=== PATIENT | female | born 1955 | race Caucasian/White ===

== ENCOUNTER 2019-07-16 09:35 | Outpatient (CLI) | payer MEDICARE, MEDICAID, SELFPAY ==
[2019-07-16 10:23] LABS: Basophils # 0.1 10^3/uL (0.0-0.1); Eosinophils # 0.1 10^3/uL (0.0-0.8); Eosinophils % 1.6 %; Hematocrit 35.9 % (37.0-47.0); Hemoglobin 11.2 g/dL (11.5-15.3); Lymphocytes # 2.2 10^3/uL (0.8-4.8); Mean Corpuscular HGB Conc 31.2 g/dL (30.0-36.0); Mean Corpuscular Hemoglobin 27.2 pg (28.0-34.0); Mean Corpuscular Volume 87.1 fL (81-99); Mean Platelet Volume 9.8 fL (7.4-10.4); Monocytes # 0.4 10^3/uL (0.2-0.9); Monocytes % 6.7 %; Neutrophils # 3.3 10^3/uL (1.8-7.7); Neutrophils % 54.4 %; Nucleated Red Blood Cells % 0 %; Platelet Count 303 10^3/cmm (130-400); Red Blood Count 4.12 10^6/uL (4.1-5.3); White Blood Count 6.1 10^3/uL (4.0-10.0)
[2019-07-16 10:40] LABS: Alanine Aminotransferase 6 U/L (0-33); Albumin Level 3.9 g/dL (3.5-5.2); Alkaline Phosphatase 83 IU/L (35-105); Anion Gap 16.3 (5-19); Aspartate Amino Transferase 13 U/L (0-32); Blood Urea Nitrogen 18 mg/dL (8-23); Carbon Dioxide 23 mmol/L (22-29); Chloride 103 mmol/L (98-107); Globulin 3.8 g/dL (1.3-4.6); Glucose 98 mg/dL (65-115); Potassium 4.3 mmol/L (3.5-5.1); Sodium 138 mmol/L (136-145); Total Bilirubin 0.4 mg/dL (0.15-1.2); Total Protein 7.7 g/dL (6.6-8.7)
[2019-07-16 10:57] LABS: Immunoglobulin IGA 492 mg/dL (70-400); Immunoglobulin IGG 1191 mg/dL (700-1600); Immunoglobulin IGM 84 mg/dL (40-230)
[2019-07-17 09:08] LABS: PROTEIN, TOTAL 6.7 g/dL (6.1-8.1)
[2019-07-17 14:55] LABS: ALBUMIN 3.5 g/dL (3.8-4.8); ALPHA 1 GLOBULIN 0.3 g/dL (0.2-0.3); ALPHA 2 GLOBULIN 0.8 g/dL (0.5-0.9); BETA 1 GLOBULIN 0.5 g/dL (0.4-0.6); BETA 2 GLOBULIN 0.5 g/dL (0.2-0.5); GAMMA GLOBULIN 1.1 g/dL (0.8-1.7); KAPPA/LAMBDA LIGHT CHAINS FREE 3.14 (0.26-1.65); LAMBDA LIGHT CHAIN, FREE, SERU 33.1 mg/L (5.7-26.3)
== END 2019-07-16 09:36 | disposition home or self-care (01) ==
LOC: ONCMED 09:40
PROVIDERS: PCP Preventive Medicine Occupational Medicine; Visit Provider Internal Medicine Medical Oncology
DX: C90.01 Multiple myeloma in remission (principal)
CPT/HCPCS: 80053; 82784; 83883; 84155; 84165; 85025

== ENCOUNTER 2019-08-28 08:41 | Outpatient (CLI) | payer MEDICARE, MEDICAID, SELFPAY ==
[2019-08-28 09:37] LABS: Hematocrit 37.6 % (37.0-47.0); Hemoglobin 11.4 g/dL (11.5-15.3); Mean Corpuscular HGB Conc 30.3 g/dL (30.0-36.0); Mean Corpuscular Hemoglobin 27.3 pg (28.0-34.0); Mean Corpuscular Volume 90.2 fL (81-99); Mean Platelet Volume 9.6 fL (7.4-10.4); Platelet Count 271 10^3/cmm (130-400); Red Blood Count 4.17 10^6/uL (4.1-5.3); Red Cell Distribution Width 14.4 % (12.1-15.1); White Blood Count 6.1 10^3/uL (4.0-10.0)
[2019-08-28 10:04] LABS: Anion Gap 16.1 (5-19); Blood Urea Nitrogen 19 mg/dL (8-23); Calcium 9.5 mg/dL (8.5-10.5); Carbon Dioxide 23 mmol/L (22-29); Chloride 106 mmol/L (98-107); Glomerular Filtration Rate 49.7 mL/min (90-130); Glucose 103 mg/dL (65-115); Phosphorus 1.9 mg/dL (2.5-4.5); Potassium 4.1 mmol/L (3.5-5.1); Sodium 141 mmol/L (136-145)
[2019-08-28 10:13] LABS: Creatinine Urine, Random 119 mg/dL (28-217)
[2019-08-28 10:24] LABS: 25 Hydroxy Vitamin D 37 ng/mL (30-100); Calcium 9.3 mg/dL (8.5-10.5); Parathyroid Hormone 75.9 pg/mL (15-65)
[2019-08-28 10:28] LABS: Microalbum Creatinine Ratio Ur 8 mg/dL (0-20); Microalbumin Random Urine < 1 ug/dL (0-20)
[2019-08-28 10:45] LABS: Absolute Eosinophils 0.1 10^3/cmm (0.0-0.7); Absolute Segmented Neutrophil 3.3 10/cmm (1.6-7.1); Band Neutrophils Absolute 0.1 10^3/cmm (0.0-1.2); Basophils Absolute 0.1 10^3/cmm (0.0-0.2); Eosinophils 2 %; Lymphocytes 29 %; Monocytes Absolute 0.7 10^3/cmm (0.1-0.6); Platelet Estimate Normal (Normal); Segmented Neutrophils 55 %; Total Cells Counted 100 (0-100)
== END 2019-08-28 08:42 | disposition home or self-care (01) ==
LOC: LAB 08:45
PROVIDERS: Visit Provider Nurse Practitioner Family
DX: N18.3 Chronic kidney disease, stage 3 (moderate) (principal)
CPT/HCPCS: 80069; 82044; 82306; 82310; 83970; 85007; 85027

== ENCOUNTER 2019-10-10 09:44 | Outpatient (CLI) | payer MEDICARE, MEDICAID, SELFPAY ==
[2019-10-10 10:27] LABS: Basophils # 0.1 10^3/uL (0.0-0.1); Basophils % 0.8 %; Eosinophils # 0.2 10^3/uL (0.0-0.8); Eosinophils % 2.6 %; Hematocrit 37.1 % (37.0-47.0); Hemoglobin 11.4 g/dL (11.5-15.3); Lymphocytes # 2.4 10^3/uL (0.8-4.8); Lymphocytes % 31.8 %; Mean Corpuscular HGB Conc 30.7 g/dL (30.0-36.0); Mean Corpuscular Hemoglobin 27.9 pg (28.0-34.0); Mean Corpuscular Volume 90.7 fL (81-99); Mean Platelet Volume 9.3 fL (7.4-10.4); Monocytes # 0.5 10^3/uL (0.2-0.9); Monocytes % 7.1 %; Neutrophils # 4.3 10^3/uL (1.8-7.7); Neutrophils % 57.4 %; Nucleated Red Blood Cells % 0 %; Platelet Count 310 10^3/cmm (130-400); Red Blood Count 4.09 10^6/uL (4.1-5.3); Red Cell Distribution Width 14.6 % (12.1-15.1); White Blood Count 7.5 10^3/uL (4.0-10.0)
[2019-10-10 10:48] LABS: Alanine Aminotransferase 16 U/L (0-33); Alkaline Phosphatase 83 IU/L (35-105); Anion Gap 15.2 (5-19); Aspartate Amino Transferase 17 U/L (0-32); Blood Urea Nitrogen 22 mg/dL (8-23); Calcium 9.5 mg/dL (8.5-10.5); Carbon Dioxide 24 mmol/L (22-29); Chloride 105 mmol/L (98-107); Globulin 3.4 g/dL (1.3-4.6); Glomerular Filtration Rate 44.9 mL/min (90-130); Glucose 95 mg/dL (65-115); Immunoglobulin IGA 460 mg/dL (70-400); Immunoglobulin IGG 1119 mg/dL (700-1600); Immunoglobulin IGM 84 mg/dL (40-230); Osmolality Calculated 286 mOsm/kg (285-295); Potassium 4.2 mmol/L (3.5-5.1); Sodium 140 mmol/L (136-145); Total Bilirubin 0.3 mg/dL (0.15-1.2); Total Protein 7.4 g/dL (6.6-8.7)
[2019-10-11 10:12] LABS: PROTEIN, TOTAL 6.9 g/dL (6.1-8.1)
[2019-10-11 13:37] LABS: ALBUMIN 3.5 g/dL (3.8-4.8); ALPHA 1 GLOBULIN 0.3 g/dL (0.2-0.3); BETA 1 GLOBULIN 0.4 g/dL (0.4-0.6); BETA 2 GLOBULIN 0.6 g/dL (0.2-0.5); GAMMA GLOBULIN 1.1 g/dL (0.8-1.7); KAPPA LIGHT CHAIN, FREE, SERUM 80.8 mg/L (3.3-19.4); KAPPA/LAMBDA LIGHT CHAINS FREE 2.34 (0.26-1.65); LAMBDA LIGHT CHAIN, FREE, SERU 34.5 mg/L (5.7-26.3)
[2019-10-11 16:16] LABS: CREATININE, 24 HOUR URINE 0.92 g/24 h (0.50-2.15); PROTEIN, TOTAL, 24 HR UR 224 mg/24 h (<150); Protein/Creatinine Ratio 0.242 (< OR = 0.114); Protein/Creatinine Ratio 242 mg/g creat (< OR = 114)
[2019-10-12 12:21] LABS: ALPHA-1-GLOBULINS 0 %; ALPHA-2-GLOBULINS 0 %; BETA GLOBULINS 0 %; GAMMA GLOBULINS 0 %
[2019-11-28 11:23] LABS: COLLECTION DURATION 24; URINE VOLUME 2800
== END 2019-10-10 09:45 | disposition home or self-care (01) ==
LOC: ONCMED 09:49
PROVIDERS: PCP Internal Medicine Nephrology; Visit Provider Internal Medicine Medical Oncology
DX: C90.01 Multiple myeloma in remission (principal); D64.9 Anemia, unspecified
CPT/HCPCS: 36415; 80053; 82040; 82784; 83883; 84155; 84165; 85025

== ENCOUNTER 2019-10-17 08:38 | Outpatient (CLI) | payer MEDICARE, MEDICAID, SELFPAY ==
--- NOTE | 2019-10-21 08:19 | ONC FU_ITS ---
Dr. Sheth Patient Follow-Up Note Patient: Aniyah Altman Unit #: [id number]: 1955 Dicatated By: Darius Sheth M.D.Date of Visit:Oct 17, 2019 Onc Med Follow-up/Prog Note Chief Complaint: Myeloma. History of Present Illness: This is a 64 year-old woman with kappa light chain myeloma. She had renal failure at initial presentation in August of 2002. At that time she also had severe venous stasis of the lower extremities with multiple associated skin ulcerations. She had a very good clinical response to initial treatment with 6 cycles of Doxil/vincristine/dexamethasone, completed in December 2002. She then underwent high-dose melphalan/stem cell transplant at [facility] in June of 2003. She has remained on observation since then, thus far with no recurrence/progression of her myeloma. 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 She had previously been treated with IV Zometa, but just with a brief course limited to 4 doses between August and November of 2003. Her other medical illnesses include hypertension and stage III chronic kidney disease. She is a nonsmoker. In the latter part of 2010 she had recurrence of venous stasis symptoms in the lower extremities, which included both swelling and ulcerations. She was seen in the wound care clinic for a persistent ulceration on the lower left leg. She apparently was found to have a venous abnormality in the left calf area, for which she did have some type of vascular procedure. She then continued on observation/expectant management for the myeloma. She is seen for a scheduled visit. She says she has been feeling great. She has good energy and she has normal activity. ECOG score is 0. Her appetite is good. She has no fever or night sweats. She has a little bit of sinus drainage. She does not complain of shortness of breath, cough, or chest pain. She has no GI or complaints. She has a little arthritis in her hands. She has no significant joint or bone pain. She has no focal neurologic symptoms. Medications: Calcium 600/Vitamin D 1 (600-400 mg - Units) Tablet Oral daily, Ergocalciferol 1 Capsule (of 1000 Units) Oral daily, Famotidine 1 Tablet (of 20 mg) Oral daily, Iron 1 (66 mg) Tablet Oral daily, Lisinopril 1 (40 mg) Tablet Oral daily, Metoprolol Tartrate 1 (25 mg) Tablet Oral b.i.d., Multi-Vitamin 1 Tablet Oral daily Allergies: No Known Allergies. Review of Systems: Constitutional - She is feeling good and has good energy. She has normal activity. Her appetite is good and weight is up a few pounds. No fever, night sweats, or hot flashes. ECOG score is 0, ENMT - She has some mild sinus congestion/drainage. No mouth sores. No sore throat or difficulty swallowing, Hematologic/Lymphatic - No abnormal bruising or bleeding, Respiratory - No shortness of breath. No cough. No pleuritic pain or hemoptysis, Cardiovascular - No angina pain. No palpitations, Gastrointestinal - No nausea or vomiting. No heartburn or acid reflux. No diarrhea or constipation. No blood in the stool or black stools, Genitourinary (F) - No dysuria or hematuria. No urinary frequency. No urgency or incontinence, Musculoskeletal - She has some arthirtis pain in her hands, Integumentary - No skin complications, Neurologic - No headache or dizziness. No numbness or tingling. No other focal neurologic symptoms, Psychiatric - No anxiety or depression. No insomnia. Vital Signs: Performed on Oct 17, 2019 09:07 Height - 61.00 in Weight - 162.0 lbs (HIGH) BSA - 1.73 sq.m BMI - 30.61 (HIGH) Temperature - 97.4 F (LOW) Pulse - 69 /min Respiration - 24 /min BP - 134/80 mm(hg) O2 Sat - 100 % Pain - 0 Physical Examination: Constitutional - She looks good generally, Eyes - Sclerae nonicteric. Conjunctivae clear, ENMT - No lesions noted in the oral cavity, Hematologic/Lymphatic - No cervical, clavicular, or axillary adenopathy, Respiratory - Lungs are clear with good air movement bilaterally, Cardiovascular - Heart rhythm is regular. There is no murmur, gallop, or rub noted, Abdomen - Soft. Liver and spleen are not enlarged. There is no abdominal mass or ascites noted and there is no inguinal adenopathy, Extremities - There are venous stasis changes bilaterally. There is no edema, Integumentary - There are no skin ulcerations, Neurologic - No focal neurologic deficits noted. Lab/Imaging: Test performed on October 10, 2019 10:05 Sodium 140 mmol/L Potassium 4.2 mmol/L Chloride 105 mmol/L CO2 24 mmol/L Anion Gap 15.2 BUN 22 mg/dL Creatinine 1.2 mg/dL Cr Clearance (Est) 52.1100 mL/min eGFR 44.9 mL/min Glucose 95 mg/dL Calcium 9.5 mg/dL Protein, Total 7.4 g/dL Albumin 4.0 g/dL Globulin 3.4 g/dL Bilirubin, Total 0.3 mg/dL ALT (SGPT) 16 U/L AST (SGOT) 17 U/L Alkaline Phosphatase 83 IU/L WBC 7.5 10 3/uL RBC 4.09 10 6/uL HGB 11.4 g/dL HCT 37.1 % MCV 90.7 fL MCH 27.9 pg MCHC 30.7 g/dL RDW 14.6 % Platelet Count 310 10 3/cmm MPV 9.3 fL Neutrophils 4.3 10 3/uL Lymphocytes 2.4 10 3/uL Monocytes 0.5 10 3/uL Eosinophils 0.2 10 3/uL Basophils 0.1 10 3/uL Neutrophil % 57.4 % Lymphocyte % 31.8 % Monocyte % 7.1 % Eosinophil % 2.6 % Basophils % 0.8 % IgG 1119 mg/dL IgA 460 mg/dL IgM 84 mg/dL Impression: 1. Patient has kappa light chain myeloma, initially presenting with renal failure in August 2002. 2. She had a good response to initial treatment with 6 cycles of Doxil/vincristine/dexamethasone, completed in December 2002. 3. She underwent high-dose melphalan/stem cell transplant in June 2003. She has since then remained on observation. 4. Her clinical course was complicated by osteonecrosis of the mandible, though she had received only a very limited course of treatment with Zometa. 5. She also has had problems intermittently related to chronic venous stasis of the lower extremities. Her other medical illnesses include: 6. Hypertension. 7. Chronic kidney disease. During followup she has continued to have somewhat borderline renal function, and she remains slightly anemic. Overall, she has been doing well clinically, thus far with no evidence of recurrence/progression of the light chain disease. Plan: She remains on observation/expectant management. She will be scheduled for a follow-up visit in 6 months. Signed By: Darius Sheth M.D. <<Signature on File>>
== END 2019-10-17 08:39 | disposition home or self-care (01) ==
LOC: ONCMED 08:42
PROVIDERS: Visit Provider Internal Medicine Medical Oncology
DX: C90.01 Multiple myeloma in remission (principal); N18.9 Chronic kidney disease, unspecified; I10 Essential (primary) hypertension; M87.88 Other osteonecrosis, other site; I83.009 Varicose veins of unspecified lower extremity with ulcer of unspecified site; L97.919 Non-pressure chronic ulcer of unspecified part of right lower leg with unspecified severity; L97.929 Non-pressure chronic ulcer of unspecified part of left lower leg with unspecified severity; Z92.21 Personal history of antineoplastic chemotherapy
CPT/HCPCS: G0463

== ENCOUNTER 2020-04-17 08:41 | Outpatient (CLI) | payer MEDICARE, MEDICAID, SELFPAY ==
[2020-04-17 09:30] LABS: Basophils % 0.6 %; Eosinophils # 0.2 10^3/uL (0.0-0.8); Eosinophils % 2.9 %; Hematocrit 36.4 % (37.0-47.0); Hemoglobin 11.7 g/dL (11.5-15.3); Lymphocytes # 2.8 10^3/uL (0.8-4.8); Lymphocytes % 40.8 %; Mean Corpuscular HGB Conc 32.1 g/dL (30.0-36.0); Mean Corpuscular Hemoglobin 28.7 pg (28.0-34.0); Mean Corpuscular Volume 89.2 fL (81-99); Mean Platelet Volume 9.6 fL (7.4-10.4); Monocytes # 0.4 10^3/uL (0.2-0.9); Monocytes % 5.5 %; Neutrophils # 3.43 10^3/uL (1.8-7.7); Neutrophils % 50.1 %; Nucleated Red Blood Cells % 0 %; Platelet Count 296 10^3/cmm (130-400); Red Blood Count 4.08 10^6/uL (4.1-5.3); Red Cell Distribution Width 14.2 % (12.1-15.1); White Blood Count 6.9 10^3/uL (4.0-10.0)
[2020-04-17 09:53] LABS: Alanine Aminotransferase 13 U/L (0-33); Albumin Level 4.2 g/dL (3.5-5.2); Alkaline Phosphatase 81 IU/L (35-105); Anion Gap 17.6 (5-19); Aspartate Amino Transferase 17 U/L (0-32); Blood Urea Nitrogen 30 mg/dL (8-23); Carbon Dioxide 24 mmol/L (22-29); Chloride 101 mmol/L (98-107); Globulin 3.7 g/dL (1.3-4.6); Glomerular Filtration Rate 37.6 mL/min (90-130); Glucose 101 mg/dL (65-115); Osmolality Calculated 294 mOsm/kg (285-295); Potassium 3.6 mmol/L (3.5-5.1); Sodium 139 mmol/L (136-145); Total Bilirubin 0.3 mg/dL (0.15-1.2); Total Protein 7.9 g/dL (6.6-8.7)
[2020-04-17 12:11] LABS: Immunoglobulin IGA 558 mg/dL (70-400); Immunoglobulin IGG 1135 mg/dL (700-1600); Immunoglobulin IGM 89 mg/dL (40-230)
[2020-04-18 12:08] LABS: KAPPA/LAMBDA LIGHT CHAINS FREE 1.99 (0.26-1.65); LAMBDA LIGHT CHAIN, FREE, SERU 38.2 mg/L (5.7-26.3)
[2020-04-18 14:42] LABS: Creatinine, Random Urine 57 mg/dL (20-275); Protein, Total, Random 10 mg/dL (5-24); Protein/Creatinine Ratio 0.175 (0.021-0.161); Protein/Creatinine Ratio 175 mg/g creat (21-161)
[2020-04-21 15:48] LABS: Albumin,Urine Random 100 %; Alpha-1-Globulins Urine Random 0 %; Alpha-2-Globulins Urine Random 0 %; Beta-Globulin,Urine Random 0 %; Gamma Globulin,Urine Random 0 %
== END 2020-04-17 08:42 | disposition home or self-care (01) ==
LOC: ONCMED 08:44
PROVIDERS: Visit Provider Internal Medicine Medical Oncology
DX: C90.01 Multiple myeloma in remission (principal)
CPT/HCPCS: 36415; 80053; 82784; 83883; 85025

== ENCOUNTER 2020-04-24 05:59 | Outpatient (CLI) | payer MEDICARE, MEDICAID, SELFPAY ==
--- NOTE | 2020-04-25 09:24 | ONC FU_ITS ---
Dr. Sheth Patient Follow-Up Note Patient: Aniyah Altman Unit #: [id number]: 1955 Dicatated By: Darius Sheth M.D.Date of Visit:Apr 24, 2020 Onc Med Follow-up/Prog Note Chief Complaint: Myeloma. History of Present Illness: This is a 64 year-old woman with kappa light chain myeloma. She had renal failure at initial presentation in August of 2002. At that time she also had severe venous stasis of the lower extremities with multiple associated skin ulcerations. She had a very good clinical response to initial treatment with 6 cycles of Doxil/vincristine/dexamethasone, completed in December 2002. She then underwent high-dose melphalan/stem cell transplant at [facility] in June of 2003. She has remained on observation since then, thus far with no recurrence/progression of her myeloma. 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 She had previously been treated with IV Zometa, but just with a brief course limited to 4 doses between August and November of 2003. Her other medical illnesses include hypertension and stage III chronic kidney disease. She is a nonsmoker. In the latter part of 2010 she had recurrence of venous stasis symptoms in the lower extremities, which included both swelling and ulcerations. She was seen in the wound care clinic for a persistent ulceration on the lower left leg. She apparently was found to have a venous abnormality in the left calf area, for which she did have some type of vascular procedure. She then continued on observation/expectant management for the myeloma. She is seen for a scheduled visit. She has been feeling good generally. She has good energy and she has normal activity. Appetite is good. She has no fever or night sweats. ECOG score is 0. She has a little bit of sinus drainage and she reports having a little bit of morning cough. She does not complain of shortness of breath or chest pain. She has no GI/ complaints other than a little bit of acid reflux. She has some joint pain, mainly in her hands and sometimes in her knees. She does not complain of headache or dizziness, and she has no focal neurologic symptoms. Medications: Calcium 600/Vitamin D 1 (600-400 mg - Units) Tablet Oral daily, Ergocalciferol 1 Capsule (of 1000 Units) Oral daily, Famotidine 1 Tablet (of 20 mg) Oral daily, Iron 1 (66 mg) Tablet Oral daily, Lisinopril 1 (40 mg) Tablet Oral daily, Metoprolol Tartrate 1 (25 mg) Tablet Oral b.i.d., Multi-Vitamin 1 Tablet Oral daily Allergies: No Known Allergies. Review of Systems: Constitutional - She has good energy and she has normal activity. Appetite is good and weight is stable. No fever, night sweats, or hot flashes. ECOG score is 0, ENMT - She has a little sinus drainage. No mouth sores. No sore throat or difficulty swallowing, Hematologic/Lymphatic - No abnormal bruising or bleeding, Respiratory - No shortness of breath. She has a little bit of morning cough. No pleuritic pain or hemoptysis, Cardiovascular - No angina pain. No palpitations, Gastrointestinal - No nausea or vomiting. She occasionally has a little bit of acid reflux. No diarrhea or constipation. No blood in the stool or black stools, Genitourinary (F) - No dysuria or hematuria. No urinary frequency. No urgency or incontinence, Musculoskeletal - She has arthritis pain, mainly her hands and sometimes in her knees, Integumentary - She has chronic skin changes in both legs, with no recurrence of open sores, Neurologic - No headache or dizziness. No numbness or tingling. No other focal neurologic symptoms, Psychiatric - No anxiety or depression. No insomnia. Vital Signs: Performed on Apr 24, 2020 08:48 Height - 61.00 in Weight - 167.6 lbs (HIGH) BSA - 1.75 sq.m BMI - 31.67 (HIGH) Temperature - 97.8 F (LOW) Pulse - 74 /min Respiration - 16 /min BP - 139/77 mm(hg) O2 Sat - 100 % Pain - 0 Physical Examination: Constitutional - She looks good generally, Eyes - Sclerae nonicteric. Conjunctivae clear, ENMT - No lesions noted in the oral cavity, Hematologic/Lymphatic - No cervical, clavicular, or axillary adenopathy, Respiratory - Lungs are clear with good air movement bilaterally, Cardiovascular - Heart rhythm is regular. There is no murmur, gallop, or rub noted, Abdomen - Soft. Liver and spleen are not enlarged. There is no abdominal mass or ascites noted and there is no inguinal adenopathy, Extremities - There are chronic venous stasis changes bilaterally. There are no associated ulcerations. There is no edema, Neurologic - No focal neurologic deficits noted. Lab/Imaging: Test performed on Apr 17, 2020 09:15 Sodium 139 mmol/L Potassium 3.6 mmol/L Chloride 101 mmol/L CO2 24 mmol/L Anion Gap 17.6 BUN 30 mg/dL Creatinine 1.4 mg/dL Cr Clearance (Est) 45.8500 mL/min eGFR 37.6 mL/min Glucose 101 mg/dL Osmolality - Calculated 294 mOsm/kg Calcium 10.0 mg/dL Protein, Total 7.9 g/dL Albumin 4.2 g/dL Globulin 3.7 g/dL Bilirubin, Total 0.3 mg/dL ALT (SGPT) 13 U/L AST (SGOT) 17 U/L Alkaline Phosphatase 81 IU/L WBC 6.9 10 3/uL RBC 4.08 10 6/uL HGB 11.7 g/dL HCT 36.4 % MCV 89.2 fL MCH 28.7 pg MCHC 32.1 g/dL RDW 14.2 % Platelet Count 296 10 3/cmm MPV 9.6 fL Neutrophils 3.43 10 3/uL Lymphocytes 2.8 10 3/uL Monocytes 0.4 10 3/uL Eosinophils 0.2 10 3/uL Basophils 0.0 10 3/uL Neutrophil % 50.1 % Lymphocyte % 40.8 % Monocyte % 5.5 % Eosinophil % 2.9 % Basophils % 0.6 % NRBC % 0 % IgA 558 mg/dL IgG 1135 mg/dL IgM 89 mg/dL [place] Free Light Chains 76.0 mg/L [place]ambda Free Light Chains 38.2 mg/L [place]/Lambda Free Ratio 1.99 Impression: 1. Patient has kappa light chain myeloma, initially presenting with renal failure in August 2002. 2. She had a good response to initial treatment with 6 cycles of Doxil/vincristine/dexamethasone, completed in December 2002. 3. She underwent high-dose melphalan/stem cell transplant in June 2003. She has since then remained on observation. 4. Her clinical course was complicated by osteonecrosis of the mandible, though she had received only a very limited course of treatment with Zometa. 5. She also has had problems intermittently related to chronic venous stasis of the lower extremities. Her other medical illnesses include: 6. Hypertension. 7. Chronic kidney disease. During followup she has continued to have somewhat borderline renal function, and she remains slightly anemic. Overall, she has been doing well clinically, thus far with no evidence of recurrence/progression of the light chain disease. Plan: She remains on observation/expectant management. She will be scheduled for a follow-up visit in 6 months. Signed By: Darius Sheth M.D. <<Signature on File>>
== END 2020-04-24 06:00 | disposition home or self-care (01) ==
LOC: ONCMED 06:01
PROVIDERS: Visit Provider Internal Medicine Medical Oncology
DX: C90.00 Multiple myeloma not having achieved remission (principal); Z94.84 Stem cells transplant status; I12.9 Hypertensive chronic kidney disease with stage 1 through stage 4 chronic kidney disease, or unspecified chronic kidney disease; N18.9 Chronic kidney disease, unspecified; D63.1 Anemia in chronic kidney disease
CPT/HCPCS: G0463

== ENCOUNTER 2020-08-20 09:30 | Outpatient (CLI) | payer MEDICARE, MEDICAID, SELFPAY ==
[2020-08-20 10:08] LABS: Basophils # 0.1 10^3/uL (0.0-0.1); Basophils % 1.1 %; Eosinophils # 0.3 10^3/uL (0.0-0.8); Eosinophils % 3.6 %; Hematocrit 37.6 % (37.0-47.0); Hemoglobin 11.6 g/dL (11.5-15.3); Lymphocytes # 2.5 10^3/uL (0.8-4.8); Lymphocytes % 35.7 %; Mean Corpuscular HGB Conc 30.9 g/dL (30.0-36.0); Mean Corpuscular Volume 90.6 fL (81-99); Mean Platelet Volume 9.4 fL (7.4-10.4); Monocytes # 0.5 10^3/uL (0.2-0.9); Monocytes % 7.4 %; Neutrophils # 3.65 10^3/uL (1.8-7.7); Neutrophils % 52.1 %; Nucleated Red Blood Cells % 0 %; Platelet Count 296 10^3/cmm (130-400); Red Blood Count 4.15 10^6/uL (4.1-5.3); Red Cell Distribution Width 14.8 % (12.1-15.1)
[2020-08-20 10:34] LABS: Anion Gap 14.8 (5-19); Blood Urea Nitrogen 20 mg/dL (8-23); Calcium 8.8 mg/dL (8.5-10.5); Carbon Dioxide 23 mmol/L (22-29); Chloride 107 mmol/L (98-107); Glomerular Filtration Rate 44.8 mL/min (90-130); Glucose 99 mg/dL (65-115); Phosphorus 2.1 mg/dL (2.5-4.5); Potassium 3.8 mmol/L (3.5-5.1); Sodium 141 mmol/L (136-145)
[2020-08-20 10:48] LABS: Urine Creatinine 87 mg/dL (28-217); Urine Protein Random 6 mg/dL
[2020-08-20 10:49] LABS: UPRO/UCREAT Ratio 0.07 mg/mg CR
[2020-08-20 10:50] LABS: Calcium 9.2 mg/dL (8.5-10.5); Parathyroid Hormone 94.3 pg/mL (15-65)
[2020-08-20 11:07] LABS: 25 Hydroxy Vitamin D 34 ng/mL (30-100)
== END 2020-08-20 09:31 | disposition home or self-care (01) ==
LOC: LAB 09:42
PROVIDERS: PCP Registered Nurse; Visit Provider Registered Nurse
DX: N18.9 Chronic kidney disease, unspecified (principal)
CPT/HCPCS: 36415; 80069; 82306; 82310; 82570; 83970; 84156; 85025

== ENCOUNTER 2020-10-14 08:44 | Outpatient (CLI) | payer MEDICARE, MEDICAID, SELFPAY ==
[2020-10-14 09:43] LABS: Basophils # 0.1 10^3/uL (0.0-0.1); Basophils % 1.2 %; Eosinophils # 0.2 10^3/uL (0.0-0.8); Hematocrit 37.3 % (37.0-47.0); Hemoglobin 11.4 g/dL (11.5-15.3); Lymphocytes # 2.5 10^3/uL (0.8-4.8); Lymphocytes % 42.5 %; Mean Corpuscular HGB Conc 30.6 g/dL (30.0-36.0); Mean Corpuscular Hemoglobin 28.4 pg (28.0-34.0); Mean Corpuscular Volume 92.8 fL (81-99); Mean Platelet Volume 9.4 fL (7.4-10.4); Monocytes # 0.5 10^3/uL (0.2-0.9); Monocytes % 7.9 %; Neutrophils # 2.57 10^3/uL (1.8-7.7); Neutrophils % 44.2 %; Nucleated Red Blood Cells % 0 %; Platelet Count 273 10^3/cmm (130-400); Red Blood Count 4.02 10^6/uL (4.1-5.3); Red Cell Distribution Width 14.9 % (12.1-15.1); White Blood Count 5.8 10^3/uL (4.0-10.0)
[2020-10-14 10:06] LABS: Alanine Aminotransferase 16 U/L (0-33); Alkaline Phosphatase 80 IU/L (35-105); Anion Gap 15.1 (5-19); Aspartate Amino Transferase 19 U/L (0-32); Blood Urea Nitrogen 25 mg/dL (8-23); Calcium 8.9 mg/dL (8.5-10.5); Carbon Dioxide 23 mmol/L (22-29); Chloride 107 mmol/L (98-107); Globulin 2.9 g/dL (1.3-4.6); Glomerular Filtration Rate 37.5 mL/min (90-130); Glucose 118 mg/dL (65-115); Immunoglobulin IGA 441 mg/dL (70-400); Immunoglobulin IGG 992 mg/dL (700-1600); Immunoglobulin IGM 74 mg/dL (40-230); Osmolality Calculated 297 mOsm/kg (285-295); Potassium 4.1 mmol/L (3.5-5.1); Sodium 141 mmol/L (136-145); Total Bilirubin 0.3 mg/dL (0.15-1.2); Total Protein 6.9 g/dL (6.6-8.7)
[2020-10-14 10:33] LABS: Total Volume, Urine 2250 mL
[2020-10-14 10:48] LABS: Urine Total Protein 24 Hour 4.4 mg/dL (0-150)
[2020-10-15 12:43] LABS: KAPPA/LAMBDA LIGHT CHAINS FREE 3.27 (0.26-1.65); LAMBDA LIGHT CHAIN, FREE, SERU 32.7 mg/L (5.7-26.3)
[2020-10-16 12:03] LABS: PROTEIN, TOTAL 6.8 g/dL (6.1-8.1)
[2020-10-16 15:58] LABS: ABNORMAL PROTEIN BAND 1 0.1 g/dL (NONE DETECTED); ALBUMIN 3.6 g/dL (3.8-4.8); ALPHA 1 GLOBULIN 0.3 g/dL (0.2-0.3); ALPHA 2 GLOBULIN 0.9 g/dL (0.5-0.9); BETA 1 GLOBULIN 0.4 g/dL (0.4-0.6); BETA 2 GLOBULIN 0.5 g/dL (0.2-0.5); GAMMA GLOBULIN 1.1 g/dL (0.8-1.7)
== END 2020-10-14 08:45 | disposition home or self-care (01) ==
PROVIDERS: PCP Registered Nurse; Visit Provider Internal Medicine Medical Oncology
DX: C90.00 Multiple myeloma not having achieved remission (principal)
CPT/HCPCS: 36415; 80053; 82784; 83883; 84155; 84156; 84165; 85025

== ENCOUNTER 2020-10-23 06:15 | Outpatient (CLI) | payer MEDICARE, MEDICAID, SELFPAY ==
--- NOTE | 2020-10-25 14:45 | ONC FU_ITS ---
Dr. Sheth Patient Follow-Up Note Patient: Aniyah Altman Unit #: [id number]: 1955 Dicatated By: Darius Sheth M.D.Date of Visit:Oct 23, 2020 Onc Med Follow-up/Prog Note Chief Complaint: Myeloma. History of Present Illness: This is a 65 year-old woman with kappa light chain myeloma. She had renal failure at initial presentation in August of 2002. At that time she also had severe venous stasis of the lower extremities with multiple associated skin ulcerations. She had a very good clinical response to initial treatment with 6 cycles of Doxil/vincristine/dexamethasone, completed in December 2002. She then underwent high-dose melphalan/stem cell transplant at [facility] in June of 2003. She has remained on observation since then, thus far with no recurrence/progression of her myeloma. 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 She had previously been treated with IV Zometa, but just with a brief course limited to 4 doses between August and November of 2003. Her other medical illnesses include hypertension and stage III chronic kidney disease. She is a nonsmoker. In the latter part of 2010 she had recurrence of venous stasis symptoms in the lower extremities, which included both swelling and ulcerations. She was seen in the wound care clinic for a persistent ulceration on the lower left leg. She apparently was found to have a venous abnormality in the left calf area, for which she did have some type of vascular procedure. She then continued on observation/expectant management for the myeloma. She is seen for a scheduled visit. She has been feeling good generally. She says she is doing great. She has pretty good energy, and her activity is normal. Her appetite is good. She has no fever or night sweats. She has some allergy related sinus symptoms. She has not had sore throat or difficulty swallowing. She has no shortness of breath, cough, or chest pain. She has no GI or complaints. She has some arthritis. Recently it has been a little better. She has just occasional headache. She has no focal neurologic symptoms. Medications: Calcium 600/Vitamin D 1 (600-400 mg - Units) Tablet Oral daily, Ergocalciferol 1 Capsule (of 1000 Units) Oral daily, Famotidine 1 Tablet (of 20 mg) Oral daily, Iron 1 (66 mg) Tablet Oral daily, Lisinopril 1 (40 mg) Tablet Oral daily, Metoprolol Tartrate 1 (25 mg) Tablet Oral b.i.d., Multi-Vitamin 1 Tablet Oral daily Allergies: No Known Allergies. Vital Signs: Performed on Oct 23, 2020 13:09 Height - 61.00 in Weight - 175.8 lbs (HIGH) BSA - 1.79 sq.m BMI - 33.22 (HIGH) Temperature - 97.6 F (LOW) Pulse - 69 /min Respiration - 18 /min BP - 145/85 mm(hg) (HIGH) O2 Sat - 98 % Pain - 0 Fatigue - 0 Physical Examination: Constitutional - She looks good generally, Eyes - Sclerae nonicteric. Conjunctivae clear, ENMT - No lesions noted in the oral cavity, Hematologic/Lymphatic - No cervical, clavicular, or axillary adenopathy, Respiratory - Lungs are clear with good air movement bilaterally, Cardiovascular - Heart rhythm is regular. There is no murmur, gallop, or rub noted, Abdomen - Soft. Liver and spleen are not enlarged. There is no abdominal mass or ascites noted and there is no inguinal adenopathy, Extremities - There are chronic venous stasis changes bilaterally. There are no active skin ulcerations. There is slight edema, Neurologic - No focal neurologic deficits noted. Lab/Imaging: Test performed on Oct 14, 2020 09:12 Sodium 141 mmol/L Potassium 4.1 mmol/L Chloride 107 mmol/L CO2 23 mmol/L Anion Gap 15.1 BUN 25 mg/dL Creatinine 1.4 mg/dL Cr Clearance (Est) 46.8000 mL/min eGFR 37.5 mL/min Glucose 118 mg/dL Osmolality - Calculated 297 mOsm/kg Calcium 8.9 mg/dL Protein, Total 6.9 g/dL Albumin 4.0 g/dL Globulin 2.9 g/dL Bilirubin, Total 0.3 mg/dL ALT (SGPT) 16 U/L AST (SGOT) 19 U/L Alkaline Phosphatase 80 IU/L WBC 5.8 10 3/uL RBC 4.02 10 6/uL HGB 11.4 g/dL HCT 37.3 % MCV 92.8 fL MCH 28.4 pg MCHC 30.6 g/dL RDW 14.9 % Platelet Count 273 10 3/cmm MPV 9.4 fL Neutrophils 2.57 10 3/uL Lymphocytes 2.5 10 3/uL Monocytes 0.5 10 3/uL Eosinophils 0.2 10 3/uL Basophils 0.1 10 3/uL Neutrophil % 44.2 % Lymphocyte % 42.5 % Monocyte % 7.9 % Eosinophil % 4.0 % Basophils % 1.2 % NRBC % 0 % IgA 441 mg/dL IgG 992 mg/dL IgM 74 mg/dL [place] Free Light Chains 107.0 mg/L Lambda Free Light Chains 32.7 mg/L [place]/Lambda Free Ratio 3.27 Problem List: 1. [place] light chain myeloma, initially presenting with renal failure in August 2002. 2. Her clinical course was complicated by osteonecrosis of the mandible, though she had received only a very limited course of treatment with Zometa. 3. She also has had problems intermittently related to chronic venous stasis of the lower extremities. 4. Hypertension. 5. Chronic kidney disease. Problems Addressed with this Encounter and Plan: 1. Patient has kappa light chain myeloma, initially presenting with renal failure in August 2002. She had a good response to initial treatment with 6 cycles of Doxil/vincristine/dexamethasone, completed in December 2002. She underwent high-dose melphalan/stem cell transplant in June 2003. She was then followed on observation/expectant management. As of her follow-up visit in April 2020 there had been no evidence of recurrence of the myeloma. Her current protein electrophoresis, though, does show a small detectable M protein quantitating at 0.1 g/dL, and there has been an increase in her free kappa light chain to 107.0 mg/L with elevated kappa/lambda ratio 3.27. These findings are suspicious for early recurrence. As yet, there is no further evaluation indicated, but I will repeat her serum and urine protein electrophoresis studies in 3 months. I will tentatively plan a follow-up visit in 6 months. 2. She has chronic venous insufficiency with some slight edema, but there has been no recurrence of skin ulcerations. 3. Her clinical course was complicated by osteonecrosis of the mandible, though she had received only a very limited course of treatment with Zometa. She does require surgery, but since then she has no further problems with it. Signed By: Darius Sheth M.D. <<Signature on File>>
== END 2020-10-23 06:16 | disposition home or self-care (01) ==
LOC: ONCMED 06:18
PROVIDERS: PCP Registered Nurse; Visit Provider Internal Medicine Medical Oncology
DX: C90.01 Multiple myeloma in remission (principal); M87.38 Other secondary osteonecrosis, other site; N18.9 Chronic kidney disease, unspecified; I87.8 Other specified disorders of veins; Z79.899 Other long term (current) drug therapy; Z79.52 Long term (current) use of systemic steroids; Z92.21 Personal history of antineoplastic chemotherapy
CPT/HCPCS: 99214

== ENCOUNTER 2021-01-22 10:18 | Outpatient (CLI) | payer MEDICARE, MEDICAID, SELFPAY ==
[2021-01-22 11:18] LABS: Basophils # 0.1 10^3/uL (0.0-0.1); Basophils % 0.6 %; Eosinophils # 0.2 10^3/uL (0.0-0.8); Eosinophils % 2.2 %; Hematocrit 37.5 % (37.0-47.0); Hemoglobin 11.6 g/dL (11.5-15.3); Lymphocytes # 2.3 10^3/uL (0.8-4.8); Lymphocytes % 26.9 %; Mean Corpuscular HGB Conc 30.9 g/dL (30.0-36.0); Mean Corpuscular Hemoglobin 28.2 pg (28.0-34.0); Mean Platelet Volume 9.6 fL (7.4-10.4); Monocytes # 0.6 10^3/uL (0.2-0.9); Monocytes % 7.5 %; Neutrophils # 5.36 10^3/uL (1.8-7.7); Neutrophils % 62.6 %; Nucleated Red Blood Cells % 0 %; Platelet Count 269 10^3/cmm (130-400); Red Blood Count 4.12 10^6/uL (4.1-5.3); Red Cell Distribution Width 14.5 % (12.1-15.1); White Blood Count 8.6 10^3/uL (4.0-10.0)
[2021-01-22 11:43] LABS: Alanine Aminotransferase 14 U/L (0-33); Albumin Level 3.9 g/dL (3.5-5.2); Alkaline Phosphatase 86 IU/L (35-105); Anion Gap 15.4 (5-19); Aspartate Amino Transferase 20 U/L (0-32); Blood Urea Nitrogen 21 mg/dL (8-23); Calcium 8.9 mg/dL (8.5-10.5); Carbon Dioxide 24 mmol/L (22-29); Chloride 98 mmol/L (98-107); Globulin 3.9 g/dL (1.3-4.6); Glomerular Filtration Rate 34.6 mL/min (90-130); Glucose 93 mg/dL (65-115); Immunoglobulin IGA 507 mg/dL (70-400); Immunoglobulin IGG 1123 mg/dL (700-1600); Immunoglobulin IGM 99 mg/dL (40-230); Osmolality Calculated 279 mOsm/kg (285-295); Potassium 4.4 mmol/L (3.5-5.1); Sodium 133 mmol/L (136-145); Total Bilirubin 0.4 mg/dL (0.15-1.2); Total Protein 7.8 g/dL (6.6-8.7)
[2021-01-22 11:49] LABS: Total Volume, Urine 1000 mL
[2021-01-22 12:19] LABS: Urine Total Protein 6.9 mg/24HR (0-150)
[2021-01-23 07:37] LABS: PROTEIN, TOTAL 7.4 g/dL (6.1-8.1)
[2021-01-23 12:43] LABS: ABNORMAL PROTEIN BAND 1 0.1 g/dL (NONE DETECTED); ALBUMIN 3.7 g/dL (3.8-4.8); ALPHA 1 GLOBULIN 0.4 g/dL (0.2-0.3); ALPHA 2 GLOBULIN 1.1 g/dL (0.5-0.9); BETA 1 GLOBULIN 0.5 g/dL (0.4-0.6); BETA 2 GLOBULIN 0.6 g/dL (0.2-0.5); GAMMA GLOBULIN 1.2 g/dL (0.8-1.7)
[2021-01-23 13:02] LABS: KAPPA LIGHT CHAIN, FREE, SERUM 136.5 mg/L (3.3-19.4); KAPPA/LAMBDA LIGHT CHAINS FREE 2.76 (0.26-1.65); LAMBDA LIGHT CHAIN, FREE, SERU 49.5 mg/L (5.7-26.3)
== END 2021-01-22 10:19 | disposition home or self-care (01) ==
LOC: ONCMED 10:21
PROVIDERS: PCP Registered Nurse; Visit Provider Internal Medicine Medical Oncology
DX: C90.00 Multiple myeloma not having achieved remission (principal); Z79.899 Other long term (current) drug therapy
CPT/HCPCS: 36415; 80053; 82784; 83883; 84155; 84156; 84165; 85025

== ENCOUNTER 2021-04-23 10:46 | Outpatient (CLI) | payer MEDICARE, MEDICAID, SELFPAY ==
[2021-04-23 11:53] LABS: Basophils # 0.1 10^3/uL (0.0-0.1); Basophils % 1.2 %; Eosinophils # 0.2 10^3/uL (0.0-0.8); Eosinophils % 2.8 %; Hematocrit 41.3 % (37.0-47.0); Hemoglobin 12.8 g/dL (11.5-15.3); Lymphocytes # 2.2 10^3/uL (0.8-4.8); Lymphocytes % 31.6 %; Mean Corpuscular Hemoglobin 27.8 pg (28.0-34.0); Mean Corpuscular Volume 89.8 fl (81-99); Mean Platelet Volume 10.7 fL (7.4-10.4); Monocytes # 0.4 10^3/uL (0.2-0.9); Monocytes % 6.5 %; Neutrophils # 3.94 10^3/uL (1.8-7.7); Neutrophils % 57.8 %; Nucleated Red Blood Cells % 0 %; Platelet Count 287 10^3/cmm (130-400); White Blood Count 6.8 10^3/uL (4.0-10.0)
[2021-04-23 12:16] LABS: Alanine Aminotransferase 12 U/L (0-33); Albumin Level 4.2 g/dL (3.5-5.2); Alkaline Phosphatase 91 IU/L (35-105); Anion Gap 19.2 (5-19); Aspartate Amino Transferase 18 U/L (0-32); Blood Urea Nitrogen 18 mg/dL (8-23); Calcium 8.8 mg/dL (8.5-10.5); Carbon Dioxide 21 mmol/L (22-29); Chloride 102 mmol/L (98-107); Globulin 3.3 g/dL (1.3-4.6); Glomerular Filtration Rate 40.9 mL/min (90-130); Glucose 82 mg/dL (65-115); Immunoglobulin IGA 535 mg/dL (70-400); Immunoglobulin IGG 1088 mg/dL (700-1600); Immunoglobulin IGM 92 mg/dL (40-230); Osmolality Calculated 287 mOsm/kg (285-295); Potassium 4.2 mmol/L (3.5-5.1); Sodium 138 mmol/L (136-145); Total Bilirubin 0.3 mg/dL (0.15-1.2); Total Protein 7.5 g/dL (6.6-8.7)
[2021-04-24 09:51] LABS: PROTEIN, TOTAL 7.4 g/dL (6.1-8.1)
[2021-04-24 11:32] LABS: CREATININE, 24 HOUR URINE 0.95 g/24 h (0.50-2.15); PROTEIN, TOTAL, 24 HR UR 135 mg/24 h (<150); Protein/Creatinine Ratio 0.143 (< OR = 0.114); Protein/Creatinine Ratio 143 mg/g creat (< OR = 114)
[2021-04-24 13:32] LABS: KAPPA LIGHT CHAIN, FREE, SERUM 125.5 mg/L (3.3-19.4); KAPPA/LAMBDA LIGHT CHAINS FREE 3.25 (0.26-1.65); LAMBDA LIGHT CHAIN, FREE, SERU 38.6 mg/L (5.7-26.3)
[2021-04-24 16:06] LABS: ALBUMIN 3.8 g/dL (3.8-4.8); ALPHA 1 GLOBULIN 0.4 g/dL (0.2-0.3); BETA 1 GLOBULIN 0.5 g/dL (0.4-0.6); BETA 2 GLOBULIN 0.6 g/dL (0.2-0.5); GAMMA GLOBULIN 1.1 g/dL (0.8-1.7)
[2021-04-27 10:08] LABS: ALBUMIN 100 %; ALPHA-1-GLOBULINS 0 %; ALPHA-2-GLOBULINS 0 %; BETA GLOBULINS 0 %; GAMMA GLOBULINS 0 %
== END 2021-04-23 10:47 | disposition home or self-care (01) ==
LOC: ONCMED 10:48
PROVIDERS: PCP Registered Nurse; Visit Provider Internal Medicine Medical Oncology
DX: C90.01 Multiple myeloma in remission (principal); D64.9 Anemia, unspecified
CPT/HCPCS: 36415; 80053; 82784; 83883; 84155; 84156; 84165; 84166; 85025

== ENCOUNTER 2021-04-29 07:09 | Outpatient (CLI) | payer MEDICARE, MEDICAID, SELFPAY ==
--- NOTE | 2021-05-03 10:41 | ONC FU_ITS ---
Dr. Sheth Patient Follow-Up Note Patient: Aniyah Altman Unit #: [id number]: 1955 Dicatated By: Darius Sheth M.D.Date of Visit:Apr 29, 2021 Onc Med Follow-up/Prog Note Chief Complaint: Myeloma. History of Present Illness: This is a 65 year-old woman with kappa light chain myeloma. She had renal failure at initial presentation in August of 2002. At that time she also had severe venous stasis of the lower extremities with multiple associated skin ulcerations. She had a very good clinical response to initial treatment with 6 cycles of Doxil/vincristine/dexamethasone, completed in December 2002. She then underwent high-dose melphalan/stem cell transplant at [facility] in June of 2003. She has remained on observation since then, thus far with no recurrence/progression of her myeloma. 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 She had previously been treated with IV Zometa, but with a brief course limited to 4 doses between August and November of 2003. Her other medical illnesses include hypertension and stage III chronic kidney disease. She is a nonsmoker. In the latter part of 2010 she had recurrence of venous stasis symptoms in the lower extremities, which included both swelling and skin ulcerations. She was seen in the wound care clinic for a persistent ulceration on the lower left leg. She apparently was found to have a venous abnormality in the left calf area, for which she did have some type of vascular procedure. She then continued on observation/expectant management for the myeloma. She is seen for a scheduled visit. She has been feeling good generally. She has good energy and activity tolerance. ECOG score is 0. She has good appetite. She has no fever or night sweats. She has not had sore mouth or throat. She has a little bit of cough. She does not complain of shortness of breath or chest pain. She has had occasional episodes of diarrhea. She has no other GI or complaints. She has no significant joint or bone pain. She occasionally has headache. She does not complain of dizziness. She sometimes has numbness in her hands. She has no other focal neurologic symptoms. Medications: Calcium 600/Vitamin D 1 (600-400 mg - Units) Tablet Oral daily, Ergocalciferol 1 Capsule (of 1000 Units) Oral daily, Famotidine 1 Tablet (of 20 mg) Oral daily, Iron 1 (66 mg) Tablet Oral daily, Lisinopril 1 (40 mg) Tablet Oral daily, Metoprolol Tartrate 1 (25 mg) Tablet Oral b.i.d., Multi-Vitamin 1 Tablet Oral daily Allergies: No Known Allergies. Vital Signs: Performed on Apr 29, 2021 16:14 Height - 61.00 in Weight - 178.2 lbs (HIGH) BSA - 1.80 sq.m BMI - 33.67 (HIGH) Temperature - 96.7 F (LOW) Pulse - 82 /min Respiration - 16 /min BP - 136/82 mm(hg) O2 Sat - 99 % Pain - 0 Fatigue - 3 Physical Examination: Constitutional - She looks good generally, Eyes - Sclerae nonicteric. Conjunctivae clear, ENMT - No lesions noted in the oral cavity, Hematologic/Lymphatic - No cervical, clavicular, or axillary adenopathy, Respiratory - Lungs are clear with good air movement bilaterally, Cardiovascular - Heart rhythm is regular. There is no murmur, gallop, or rub noted, Abdomen - Soft. Liver and spleen are not enlarged. There is no abdominal mass or ascites noted and there is no inguinal adenopathy, Extremities - There are chronic venous stasis changes bilaterally. There is currently no edema, Neurologic - No focal neurologic deficits noted. Lab/Imaging: Test performed on Apr 23, 2021 11:08 U Protein, 24hr 135 mg/24 h U Protein/Creat Ratio 0.143 U Albumin % 100 % UPE Interpretation SEE NOTE Agarose electrophoresis of urine reveals albumin. No abnormal protein is observed. THIS TEST WAS PERFORMED AT: [facility] [id number] [place] [address] ALLISON ROSARIO DO,MPH U Creatinine, 24 hr 0.95 g/24 h U [id number] 0 % U [id number] 0 % U Beta Globulin 0 % U Gamma Globulin 0 % Test performed on Apr 23, 2021 11:06 Sodium 138 mmol/L Potassium 4.2 mmol/L Chloride 102 mmol/L CO2 21 mmol/L Anion Gap 19.2 BUN 18 mg/dL Creatinine 1.3 mg/dL Cr Clearance (Est) 52.8600 mL/min eGFR 40.9 mL/min Glucose 82 mg/dL Osmolality - Calculated 287 mOsm/kg Calcium 8.8 mg/dL Protein, Total 7.5 g/dL Albumin 4.2 g/dL Globulin 3.3 g/dL Bilirubin, Total 0.3 mg/dL ALT (SGPT) 12 U/L AST (SGOT) 18 U/L Alkaline Phosphatase 91 IU/L WBC 6.8 10 3/uL RBC 4.60 10 6/uL HGB 12.8 g/dL HCT 41.3 % MCV 89.8 fl MCH 27.8 pg MCHC 31.0 g/dL RDW 14.0 % Platelet Count 287 10 3/cmm MPV 10.7 fL Neutrophils 3.94 10 3/uL Lymphocytes 2.2 10 3/uL Monocytes 0.4 10 3/uL Eosinophils 0.2 10 3/uL Basophils 0.1 10 3/uL Neutrophil % 57.8 % Lymphocyte % 31.6 % Monocyte % 6.5 % Eosinophil % 2.8 % Basophils % 1.2 % NRBC % 0 % [place] Free Light Chains 125.5 mg/L Lambda Free Light Chains 38.6 mg/L IgA 535 mg/dL [place]/Lambda Free Ratio 3.25 Problem List: 1. [place] light chain myeloma, initially presenting with renal failure in August 2002. 2. Her clinical course was complicated by osteonecrosis of the mandible, though she had received only a very limited course of treatment with Zometa. 3. She also has had problems intermittently related to chronic venous stasis of the lower extremities. 4. Hypertension. 5. Chronic kidney disease. Problems Addressed with this Encounter and Plan: 1. Patient has kappa light chain myeloma, initially presenting with renal failure in August 2002. She had a good response to initial treatment with 6 cycles of Doxil/vincristine/dexamethasone, completed in December 2002. She underwent high-dose melphalan/stem cell transplant in June 2003. She was then followed on observation/expectant management. As of her follow-up visit in April 2020 there had been no evidence of recurrence of the myeloma. Beginning in October 2020 there was a small amount of M protein detectable on her protein electrophoresis, and there has been mild elevation of the free kappa light chain and kappa/lambda ratio. Thus far her clinical status has been stable, but the laboratory findings are a little worrisome for early signs of recurrence. At least for now she will continue expectant management. Her laboratory studies were repeated in 3 months. She will be scheduled for a follow-up visit in 6 months. 2. She has chronic venous insufficiency, but there has been no recurrence of skin ulcerations. 3. Her clinical course was complicated by osteonecrosis of the mandible, though she had received only a very limited course of treatment with Zometa. She did require surgery, but since then she has no further problems with it. Signed By: Darius Sheth M.D. <<Signature on File>>
== END 2021-04-29 07:10 | disposition home or self-care (01) ==
LOC: ONCMED 07:10
PROVIDERS: PCP Registered Nurse; Visit Provider Internal Medicine Medical Oncology
DX: C90.01 Multiple myeloma in remission (principal); I12.9 Hypertensive chronic kidney disease with stage 1 through stage 4 chronic kidney disease, or unspecified chronic kidney disease; N18.9 Chronic kidney disease, unspecified; I87.8 Other specified disorders of veins; Z79.899 Other long term (current) drug therapy
CPT/HCPCS: G0463

== ENCOUNTER 2021-07-27 12:51 | Outpatient (CLI) | payer MEDICARE, MEDICAID, SELFPAY ==
[2021-07-27 14:09] LABS: Basophils # 0.1 10^3/uL (0.0-0.1); Basophils % 0.9 %; Eosinophils # 0.2 10^3/uL (0.0-0.8); Eosinophils % 1.9 %; Hematocrit 38.7 % (37.0-47.0); Hemoglobin 12.1 g/dL (11.5-15.3); Lymphocytes # 2.4 10^3/uL (0.8-4.8); Lymphocytes % 30.1 %; Mean Corpuscular HGB Conc 31.3 g/dL (30.0-36.0); Mean Corpuscular Volume 89.6 fl (81-99); Mean Platelet Volume 9.5 fL (7.4-10.4); Monocytes # 0.5 10^3/uL (0.2-0.9); Monocytes % 5.9 %; Neutrophils # 4.86 10^3/uL (1.8-7.7); Neutrophils % 60.9 %; Nucleated Red Blood Cells % 0 %; Platelet Count 289 10^3/cmm (130-400); Red Blood Count 4.32 10^6/uL (4.1-5.3); Red Cell Distribution Width 14.7 % (12.1-15.1)
[2021-07-28 06:47] LABS: PROTEIN, TOTAL 7.5 g/dL (6.1-8.1)
[2021-07-28 10:52] LABS: ALPHA 1 GLOBULIN 0.3 g/dL (0.2-0.3); BETA 1 GLOBULIN 0.5 g/dL (0.4-0.6); BETA 2 GLOBULIN 0.6 g/dL (0.2-0.5); GAMMA GLOBULIN 1.1 g/dL (0.8-1.7)
[2021-07-28 16:06] LABS: KAPPA LIGHT CHAIN, FREE, SERUM 103.7 mg/L (3.3-19.4); KAPPA/LAMBDA LIGHT CHAINS FREE 2.98 (0.26-1.65); LAMBDA LIGHT CHAIN, FREE, SERU 34.8 mg/L (5.7-26.3)
== END 2021-07-27 12:52 | disposition home or self-care (01) ==
LOC: ONCMED 12:56
PROVIDERS: PCP Registered Nurse; Visit Provider Internal Medicine Medical Oncology
DX: C90.01 Multiple myeloma in remission (principal); I12.9 Hypertensive chronic kidney disease with stage 1 through stage 4 chronic kidney disease, or unspecified chronic kidney disease; N18.30 Chronic kidney disease, stage 3 unspecified; I87.8 Other specified disorders of veins; I87.2 Venous insufficiency (chronic) (peripheral)
CPT/HCPCS: 36415; 83883; 84155; 84165; 85025; 86334

== ENCOUNTER 2021-08-25 09:37 | Outpatient (CLI) | payer MEDICARE, MEDICAID, SELFPAY ==
[2021-08-25 10:04] LABS: Basophils # 0.1 10^3/uL (0.0-0.1); Basophils % 0.7 %; Eosinophils # 0.2 10^3/uL (0.0-0.8); Eosinophils % 1.8 %; Hemoglobin 11.7 g/dL (11.5-15.3); Lymphocytes # 2.2 10^3/uL (0.8-4.8); Lymphocytes % 25.1 %; Mean Corpuscular HGB Conc 30.8 g/dL (30.0-36.0); Mean Corpuscular Hemoglobin 27.9 pg (28.0-34.0); Mean Corpuscular Volume 90.7 fl (81-99); Mean Platelet Volume 9.3 fL (7.4-10.4); Monocytes # 0.6 10^3/uL (0.2-0.9); Monocytes % 6.3 %; Neutrophils # 5.74 10^3/uL (1.8-7.7); Neutrophils % 65.8 %; Nucleated Red Blood Cells % 0 %; Platelet Count 332 10^3/cmm (130-400); Red Blood Count 4.19 10^6/uL (4.1-5.3); Red Cell Distribution Width 14.1 % (12.1-15.1); White Blood Count 8.7 10^3/uL (4.0-10.0)
[2021-08-25 10:24] LABS: Albumin Level 3.9 g/dL (3.5-5.2); Anion Gap 14.3 (5-19); Blood Urea Nitrogen 28 mg/dL (8-23); Calcium 10.5 mg/dL (8.5-10.5); Calcium 10.7 mg/dL (8.5-10.5); Carbon Dioxide 23 mmol/L (22-29); Chloride 105 mmol/L (98-107); Glomerular Filtration Rate 40.7 mL/min (90-130); Glucose 102 mg/dL (65-115); Phosphorus 3.4 mg/dL (2.5-4.5); Potassium 4.3 mmol/L (3.5-5.1); Sodium 138 mmol/L (136-145)
[2021-08-25 10:30] LABS: Parathyroid Hormone 52.2 pg/mL (15-65)
[2021-08-25 10:33] LABS: Creatinine Urine, Random 100 mg/dL (28-217); Microalbum Creatinine Ratio Ur 20 mg/dL (0-20); Microalbumin Random Urine 2 ug/dL (0-20)
== END 2021-08-25 09:38 | disposition home or self-care (01) ==
LOC: LAB 09:40
PROVIDERS: PCP Registered Nurse; Visit Provider Internal Medicine Nephrology
DX: N18.31 Chronic kidney disease, stage 3a (principal)
CPT/HCPCS: 36415; 80069; 82044; 82310; 83970; 85025

== ENCOUNTER 2021-12-07 14:37 | Oncology outpatient (recurring) (ONCR) | payer MEDICARE, MEDICAID, SELFPAY ==
[2021-11-30 10:27] LABS: Basophils # 0.1 10^3/uL (0.0-0.1); Basophils % 1.1 %; Eosinophils # 0.1 10^3/uL (0.0-0.8); Eosinophils % 2.3 %; Hematocrit 36.1 % (37.0-47.0); Hemoglobin 11.6 g/dL (11.5-15.3); Lymphocytes # 2.1 10^3/uL (0.8-4.8); Lymphocytes % 33.3 %; Mean Corpuscular HGB Conc 32.1 g/dL (30.0-36.0); Mean Corpuscular Hemoglobin 27.6 pg (28.0-34.0); Mean Platelet Volume 9.8 fL (7.4-10.4); Monocytes # 0.4 10^3/uL (0.2-0.9); Monocytes % 5.6 %; Neutrophils # 3.57 10^3/uL (1.8-7.7); Neutrophils % 57.4 %; Nucleated Red Blood Cells % 0 %; Platelet Count 277 10^3/cmm (130-400); Red Cell Distribution Width 15.2 % (12.1-15.1); White Blood Count 6.2 10^3/uL (4.0-10.0)
[2021-11-30 11:18] LABS: Chloride 106 mmol/L (98-107); Immunoglobulin IGA 504 mg/dL (70-400); Immunoglobulin IGG 1049 mg/dL (700-1600); Potassium 4.3 mmol/L (3.5-5.1); Sodium 141 mmol/L (136-145)
[2021-11-30 11:34] LABS: Alanine Aminotransferase 10 U/L (0-33); Albumin Level 4.2 g/dL (3.5-5.2); Alkaline Phosphatase 91 IU/L (35-105); Anion Gap 14.3 (5-19); Aspartate Amino Transferase 17 U/L (0-32); Blood Urea Nitrogen 25 mg/dL (8-23); Calcium 9.7 mg/dL (8.5-10.5); Carbon Dioxide 25 mmol/L (22-29); Globulin 3.5 g/dL (1.3-4.6); Glomerular Filtration Rate 37.4 mL/min (90-130); Glucose 99 mg/dL (65-115); Immunoglobulin IGM 85 mg/dL (40-230); Osmolality Calculated 296 mOsm/kg (285-295); Total Bilirubin 0.4 mg/dL (0.15-1.2); Total Protein 7.7 g/dL (6.6-8.7)
[2021-12-01 06:44] LABS: PROTEIN, TOTAL 7.1 g/dL (6.1-8.1)
[2021-12-01 12:07] LABS: KAPPA LIGHT CHAIN, FREE, SERUM 119.4 mg/L (3.3-19.4); KAPPA/LAMBDA LIGHT CHAINS FREE 3.59 (0.26-1.65); LAMBDA LIGHT CHAIN, FREE, SERU 33.3 mg/L (5.7-26.3)
[2021-12-01 13:18] LABS: PROTEIN, TOTAL, 24 HR UR 252 mg/24 h (<150); Protein/Creatinine Ratio 0.158 (< OR = 0.114); Protein/Creatinine Ratio 158 mg/g creat (< OR = 114)
[2021-12-01 17:22] LABS: ABNORMAL PROTEIN BAND 1 0.2 g/dL (NONE DETECTED); ALBUMIN 3.7 g/dL (3.8-4.8); ALPHA 1 GLOBULIN 0.3 g/dL (0.2-0.3); ALPHA 2 GLOBULIN 0.9 g/dL (0.5-0.9); BETA 1 GLOBULIN 0.5 g/dL (0.4-0.6); BETA 2 GLOBULIN 0.6 g/dL (0.2-0.5); GAMMA GLOBULIN 1.1 g/dL (0.8-1.7)
[2021-12-02 09:13] LABS: ALBUMIN 100 %; ALPHA-1-GLOBULINS 0 %; ALPHA-2-GLOBULINS 0 %; BETA GLOBULINS 0 %; GAMMA GLOBULINS 0 %
== END 2021-12-13 23:59 | disposition home or self-care (01) ==
PROVIDERS: Internal Medicine Medical Oncology; PCP Registered Nurse; Visit Provider Nurse Practitioner Family
DX: C90.01 Multiple myeloma in remission (principal); I87.2 Venous insufficiency (chronic) (peripheral)
CPT/HCPCS: 36415; 80053; 82784; 83883; 84155; 84156; 84165; 84166; 85025; 99214

== ENCOUNTER 2022-03-11 12:55 | Oncology outpatient (recurring) (ONCR) | payer MEDICARE, MEDICAID, SELFPAY ==
[2022-03-11 13:45] LABS: Basophils # 0.1 10^3/uL (0.0-0.1); Eosinophils # 0.2 10^3/uL (0.0-0.8); Eosinophils % 2.3 %; Hemoglobin 12.4 g/dL (11.5-15.3); Lymphocytes # 2.3 10^3/uL (0.8-4.8); Lymphocytes % 33.9 %; Mean Corpuscular HGB Conc 30.2 g/dL (30.0-36.0); Mean Corpuscular Hemoglobin 27.7 pg (28.0-34.0); Mean Corpuscular Volume 91.5 fl (81-99); Mean Platelet Volume 9.4 fL (7.4-10.4); Monocytes # 0.5 10^3/uL (0.2-0.9); Monocytes % 7.2 %; Neutrophils # 3.77 10^3/uL (1.8-7.7); Neutrophils % 55.3 %; Nucleated Red Blood Cells % 0 %; Platelet Count 273 10^3/cmm (130-400); Red Blood Count 4.48 10^6/uL (4.1-5.3); Red Cell Distribution Width 14.3 % (12.1-15.1); White Blood Count 6.8 10^3/uL (4.0-10.0)
[2022-03-13 01:34] LABS: PROTEIN, TOTAL 7.4 g/dL (6.1-8.1)
[2022-03-15 14:33] LABS: ABNORMAL PROTEIN BAND 1 0.2 g/dL (NONE DETECTED); ALBUMIN 3.8 g/dL (3.8-4.8); ALPHA 1 GLOBULIN 0.4 g/dL (0.2-0.3); BETA 1 GLOBULIN 0.5 g/dL (0.4-0.6); BETA 2 GLOBULIN 0.6 g/dL (0.2-0.5); GAMMA GLOBULIN 1.1 g/dL (0.8-1.7)
== END 2022-03-15 23:59 | disposition home or self-care (01) ==
PROVIDERS: Nurse Practitioner Family; PCP Registered Nurse; Visit Provider Internal Medicine Medical Oncology
DX: C90.01 Multiple myeloma in remission (principal)
CPT/HCPCS: 36415; 84155; 84165; 85025

== ENCOUNTER 2022-06-07 11:16 | Oncology outpatient (recurring) (ONCR) | payer MEDICARE, MEDICAID, SELFPAY ==
[2022-06-07 12:42] LABS: Basophils # 0.1 10^3/uL (0.0-0.1); Basophils % 1.2 %; Eosinophils # 0.1 10^3/uL (0.0-0.8); Eosinophils % 2.4 %; Hemoglobin 12.1 g/dL (11.5-15.3); Lymphocytes # 1.9 10^3/uL (0.8-4.8); Lymphocytes % 32.7 %; Mean Corpuscular HGB Conc 30.3 g/dL (30.0-36.0); Mean Corpuscular Hemoglobin 26.7 pg (28.0-34.0); Mean Corpuscular Volume 88.3 fl (81-99); Mean Platelet Volume 9.5 fL (7.4-10.4); Monocytes # 0.4 10^3/uL (0.2-0.9); Monocytes % 6.7 %; Neutrophils # 3.36 10^3/uL (1.8-7.7); Neutrophils % 56.7 %; Nucleated Red Blood Cells % 0 %; Platelet Count 298 10^3/cmm (130-400); Red Blood Count 4.53 10^6/uL (4.1-5.3); Red Cell Distribution Width 14.5 % (12.1-15.1); White Blood Count 5.9 10^3/uL (4.0-10.0)
[2022-06-07 12:56] LABS: Alanine Aminotransferase < 5 U/L (0-33); Albumin Level 4.1 g/dL (3.5-5.2); Alkaline Phosphatase 98 U/L (35-105); Anion Gap 14.5 (5-19); Aspartate Amino Transferase 14 U/L (0-32); Blood Urea Nitrogen 16 mg/dL (8-23); Calcium 9.1 mg/dL (8.5-10.5); Carbon Dioxide 27 mmol/L (22-29); Chloride 100 mmol/L (98-107); Globulin 3.4 g/dL (1.3-4.6); Glomerular Filtration Rate 49.2 mL/min (90-130); Glucose 90 mg/dL (65-115); Osmolality Calculated 285 mOsm/kg (285-295); Potassium 4.5 mmol/L (3.5-5.1); Sodium 137 mmol/L (136-145); Total Bilirubin 0.3 mg/dL (0.15-1.2); Total Protein 7.5 g/dL (6.6-8.7)
[2022-06-07 13:03] LABS: Erythrocyte Sedimentation Rate 49 mm/hr (0-15)
[2022-06-08 11:11] LABS: KAPPA LIGHT CHAIN, FREE, SERUM 123.6 mg/L (3.3-19.4); KAPPA/LAMBDA LIGHT CHAINS FREE 3.75 (0.26-1.65)
[2022-06-08 14:55] LABS: ABNORMAL PROTEIN BAND 1 0.2 g/dL (NONE DETECTED); ALBUMIN 3.6 g/dL (3.8-4.8); ALPHA 1 GLOBULIN 0.4 g/dL (0.2-0.3); ALPHA 2 GLOBULIN 0.9 g/dL (0.5-0.9); BETA 1 GLOBULIN 0.5 g/dL (0.4-0.6); BETA 2 GLOBULIN 0.5 g/dL (0.2-0.5); GAMMA GLOBULIN 1.1 g/dL (0.8-1.7)
[2022-06-09 16:30] LABS: CREATININE, 24 HOUR URINE 1.01 g/24 h (0.50-2.15); PROTEIN, TOTAL, 24 HR UR 155 mg/24 h (<150); Protein/Creatinine Ratio 0.154 (<0.150); Protein/Creatinine Ratio 154 mg/g creat (<150)
[2022-06-10 11:55] LABS: ALBUMIN 100 %; ALPHA-1-GLOBULINS 0 %; ALPHA-2-GLOBULINS 0 %; BETA GLOBULINS 0 %; GAMMA GLOBULINS 0 %
== END 2022-06-15 23:59 | disposition home or self-care (01) ==
PROVIDERS: PCP Registered Nurse; Visit Provider Internal Medicine Medical Oncology
DX: C90.01 Multiple myeloma in remission (principal)
CPT/HCPCS: 36415; 80053; 83883; 84155; 84156; 84165; 84166; 85025; 85651; 99213

== ENCOUNTER 2022-08-31 08:48 | Outpatient (CLI) | payer MEDICARE, MEDICAID, SELFPAY ==
[2022-08-31 10:45] LABS: Albumin Level 3.9 g/dL (3.5-5.2); Blood Urea Nitrogen 25 mg/dL (8-23); Calcium 9.1 mg/dL (8.5-10.5); Carbon Dioxide 23 mmol/L (22-29); Chloride 103 mmol/L (98-107); Glomerular Filtration Rate 37.3 mL/min (90-130); Glucose 88 mg/dL (65-115); Phosphorus 2.4 mg/dL (2.5-4.5); Sodium 136 mmol/L (136-145)
[2022-08-31 10:47] LABS: Anion Gap 14.6 (5-19); Potassium 4.6 mmol/L (3.5-5.1)
[2022-08-31 10:49] LABS: Creatinine Urine, Random 58 mg/dL (28-217); Microalbum Creatinine Ratio Ur 17 mg/dL (0-20); Microalbumin Random Urine 1 ug/dL (0-20)
[2022-08-31 11:00] LABS: 25 Hydroxy Vitamin D 27 ng/mL (30-100); Parathyroid Hormone 95.1 pg/mL (15-65)
[2022-08-31 12:10] LABS: Basophils # 0.1 10^3/uL (0.0-0.1); Basophils % 0.9 %; Eosinophils # 0.1 10^3/uL (0.0-0.8); Eosinophils % 1.3 %; Hematocrit 40.4 % (37.0-47.0); Hemoglobin 12.4 g/dL (11.5-15.3); Lymphocytes % 26.3 %; Mean Corpuscular HGB Conc 30.7 g/dL (30.0-36.0); Mean Corpuscular Hemoglobin 26.7 pg (28.0-34.0); Mean Corpuscular Volume 87.1 fl (81-99); Mean Platelet Volume 9.3 fL (7.4-10.4); Monocytes # 0.4 10^3/uL (0.2-0.9); Monocytes % 5.3 %; Neutrophils # 4.92 10^3/uL (1.8-7.7); Neutrophils % 65.8 %; Nucleated Red Blood Cells % 0 %; Platelet Count 260 10^3/cmm (130-400); Red Blood Count 4.64 10^6/uL (4.1-5.3); Red Cell Distribution Width 14.7 % (12.1-15.1); White Blood Count 7.5 10^3/uL (4.0-10.0)
== END 2022-08-31 08:49 | disposition home or self-care (01) ==
PROVIDERS: PCP Registered Nurse; Visit Provider Registered Nurse
DX: N18.31 Chronic kidney disease, stage 3a (principal)
CPT/HCPCS: 36415; 80069; 82044; 82306; 82310; 83970; 85025

== ENCOUNTER 2022-09-10 13:06 | Oncology outpatient (recurring) (ONCR) | payer MEDICARE, MEDICAID, SELFPAY ==
[2022-09-10 13:44] LABS: Basophils # 0.1 10^3/uL (0.0-0.1); Basophils % 1.1 %; Eosinophils # 0.1 10^3/uL (0.0-0.8); Eosinophils % 1.7 %; Hematocrit 43.9 % (37.0-47.0); Hemoglobin 13.4 g/dL (11.5-15.3); Lymphocytes # 2.5 10^3/uL (0.8-4.8); Lymphocytes % 34.8 %; Mean Corpuscular HGB Conc 30.5 g/dL (30.0-36.0); Mean Corpuscular Volume 88.3 fl (81-99); Mean Platelet Volume 9.8 fL (7.4-10.4); Monocytes # 0.4 10^3/uL (0.2-0.9); Monocytes % 4.8 %; Neutrophils # 4.17 10^3/uL (1.8-7.7); Neutrophils % 57.5 %; Nucleated Red Blood Cells % 0 %; Platelet Count 272 10^3/cmm (130-400); Red Blood Count 4.97 10^6/uL (4.1-5.3); Red Cell Distribution Width 14.8 % (12.1-15.1); White Blood Count 7.3 10^3/uL (4.0-10.0)
[2022-09-10 14:02] LABS: Alanine Aminotransferase 9 U/L (0-33); Albumin Level 4.2 g/dL (3.5-5.2); Alkaline Phosphatase 105 U/L (35-105); Anion Gap 17.4 (5-19); Aspartate Amino Transferase 17 U/L (0-32); Blood Urea Nitrogen 22 mg/dL (8-23); Calcium 9.4 mg/dL (8.5-10.5); Carbon Dioxide 22 mmol/L (22-29); Chloride 101 mmol/L (98-107); Globulin 3.9 g/dL (1.3-4.6); Glomerular Filtration Rate 37.3 mL/min (90-130); Glucose 85 mg/dL (65-115); Immunoglobulin IGA 559 mg/dL (70-400); Immunoglobulin IGG 1171 mg/dL (700-1600); Immunoglobulin IGM 95 mg/dL (40-230); Osmolality Calculated 285 mOsm/kg (285-295); Potassium 4.4 mmol/L (3.5-5.1); Sodium 136 mmol/L (136-145); Total Bilirubin 0.3 mg/dL (0.15-1.2); Total Protein 8.1 g/dL (6.6-8.7)
[2022-09-11 14:00] LABS: PROTEIN, TOTAL 7.7 g/dL (6.1-8.1)
[2022-09-13 12:35] LABS: KAPPA LIGHT CHAIN, FREE, SERUM 136.6 mg/L (3.3-19.4); KAPPA/LAMBDA LIGHT CHAINS FREE 3.88 (0.26-1.65); LAMBDA LIGHT CHAIN, FREE, SERU 35.2 mg/L (5.7-26.3)
[2022-09-13 15:04] LABS: ABNORMAL PROTEIN BAND 1 0.2 g/dL (NONE DETECTED); ALBUMIN 4.1 g/dL (3.8-4.8); ALPHA 1 GLOBULIN 0.3 g/dL (0.2-0.3); BETA 1 GLOBULIN 0.6 g/dL (0.4-0.6); BETA 2 GLOBULIN 0.5 g/dL (0.2-0.5); GAMMA GLOBULIN 1.2 g/dL (0.8-1.7)
== END 2022-09-12 23:59 | disposition home or self-care (01) ==
LOC: ONCMED 13:07
PROVIDERS: PCP Registered Nurse; Visit Provider Internal Medicine Medical Oncology
DX: C90.01 Multiple myeloma in remission (principal)
CPT/HCPCS: 36415; 80053; 82784; 83883; 84155; 84165; 85025

== ENCOUNTER 2022-12-13 13:17 | Oncology outpatient (recurring) (ONCR) | payer MEDICARE, MEDICAID, SELFPAY ==
[2022-12-06 09:51] VITALS: BP 136/88; PULSE 73; RESP 18; TEMP 36; O2SAT 100
[2022-12-06 10:11] LABS: Basophils # 0.1 10^3/uL (0.0-0.1); Eosinophils # 0.2 10^3/uL (0.0-0.8); Eosinophils % 2.5 %; Hemoglobin 12.5 g/dL (11.5-15.3); Lymphocytes # 2.3 10^3/uL (0.8-4.8); Lymphocytes % 29.5 %; Mean Corpuscular HGB Conc 31.3 g/dL (30.0-36.0); Mean Corpuscular Hemoglobin 27.1 pg (28.0-34.0); Mean Corpuscular Volume 86.6 fl (81-99); Mean Platelet Volume 9.2 fL (7.4-10.4); Monocytes # 0.5 10^3/uL (0.2-0.9); Neutrophils # 4.62 10^3/uL (1.8-7.7); Neutrophils % 59.7 %; Nucleated Red Blood Cells % 0 %; Platelet Count 256 10^3/cmm (130-400); Red Blood Count 4.62 10^6/uL (4.1-5.3); Red Cell Distribution Width 14.9 % (12.1-15.1); White Blood Count 7.7 10^3/uL (4.0-10.0)
[2022-12-06 11:19] LABS: Alanine Aminotransferase 6 U/L (0-33); Alkaline Phosphatase 104 U/L (35-105); Anion Gap 14.3 (5-19); Aspartate Amino Transferase 12 U/L (0-32); Blood Urea Nitrogen 24 mg/dL (8-23); Calcium 9.5 mg/dL (8.5-10.5); Carbon Dioxide 25 mmol/L (22-29); Chloride 101 mmol/L (98-107); Globulin 2.9 g/dL (1.3-4.6); Glomerular Filtration Rate 34.4 mL/min (90-130); Glucose 91 mg/dL (65-115); Immunoglobulin IGA 517 mg/dL (70-400); Immunoglobulin IGG 1104 mg/dL (700-1600); Immunoglobulin IGM 95 mg/dL (40-230); Osmolality Calculated 286 mOsm/kg (285-295); Potassium 4.3 mmol/L (3.5-5.1); Sodium 136 mmol/L (136-145); Total Bilirubin 0.5 mg/dL (0.15-1.2); Total Protein 6.9 g/dL (6.6-8.7)
[2022-12-07 08:44] LABS: PROTEIN, TOTAL 7.1 g/dL (6.1-8.1)
[2022-12-07 11:14] LABS: CREATININE, 24 HOUR URINE 1.21 g/24 h (0.50-2.15); PROTEIN, TOTAL, 24 HR UR 190 mg/24 h (<150); Protein/Creatinine Ratio 0.157 (<0.150); Protein/Creatinine Ratio 157 mg/g creat (<150)
[2022-12-07 11:30] LABS: KAPPA LIGHT CHAIN, FREE, SERUM 145.1 mg/L (3.3-19.4); LAMBDA LIGHT CHAIN, FREE, SERU 36.3 mg/L (5.7-26.3)
[2022-12-07 13:44] LABS: ABNORMAL PROTEIN BAND 1 0.2 g/dL (NONE DETECTED); ALBUMIN 3.7 g/dL (3.8-4.8); ALPHA 1 GLOBULIN 0.4 g/dL (0.2-0.3); ALPHA 2 GLOBULIN 0.9 g/dL (0.5-0.9); BETA 1 GLOBULIN 0.5 g/dL (0.4-0.6); BETA 2 GLOBULIN 0.5 g/dL (0.2-0.5); GAMMA GLOBULIN 1.1 g/dL (0.8-1.7)
[2022-12-07 15:49] LABS: ALBUMIN 0 %; ALPHA-1-GLOBULINS 0 %; ALPHA-2-GLOBULINS 0 %; BETA GLOBULINS 0 %; GAMMA GLOBULINS 0 %
== END 2022-12-13 23:59 | disposition home or self-care (01) ==
PROVIDERS: Internal Medicine Medical Oncology; PCP Registered Nurse; Visit Provider Internal Medicine Medical Oncology
DX: C90.01 Multiple myeloma in remission (principal); R74.8 Abnormal levels of other serum enzymes; N28.89 Other specified disorders of kidney and ureter; Z92.21 Personal history of antineoplastic chemotherapy
CPT/HCPCS: 36415; 80053; 82784; 83883; 84155; 84156; 84165; 84166; 85025; 86334; 99213

== ENCOUNTER 2023-04-14 12:58 | Oncology outpatient (recurring) (ONCR) | payer MEDICARE, MEDICAID, SELFPAY ==
[2023-04-13 11:24] VITALS: BP 162/98; PULSE 85; RESP 16; TEMP 36.8; O2SAT 99
[2023-04-13 11:52] LABS: Basophils # 0.1 10^3/uL (0.0-0.1); Basophils % 0.9 %; Eosinophils # 0.2 10^3/uL (0.0-0.8); Hematocrit 39.4 % (36-47); Lymphocytes # 1.9 10^3/uL (0.8-4.8); Mean Corpuscular HGB Conc 30.5 g/dL (30-55); Mean Corpuscular Hemoglobin 27.4 pg (27-33); Mean Platelet Volume 9.3 fL (7.4-10.4); Monocytes # 0.5 10^3/uL (0.2-0.9); Monocytes % 6.5 %; Neutrophils # 4.75 10^3/uL (1.8-7.7); Neutrophils % 64.3 %; Nucleated Red Blood Cells % 0 %; Platelet Count 245 10^3/cmm (157-399); Red Blood Count 4.38 10^6/uL (3.85-5.65); Red Cell Distribution Width 14.8 % (12.1-15.1); White Blood Count 7.39 10^3/uL (3.29-11.43)
[2023-04-13 12:14] LABS: Alanine Aminotransferase 10 U/L (0-33); Alkaline Phosphatase 102 U/L (35-105); Anion Gap 15.2 (5-19); Aspartate Amino Transferase 15 U/L (0-32); Blood Urea Nitrogen 26 mg/dL (8-23); Calcium 9.8 mg/dL (8.5-10.5); Carbon Dioxide 26 mmol/L (22-29); Chloride 106 mmol/L (98-107); Globulin 3.5 g/dL (1.3-4.6); Glomerular Filtration Rate 37.3 mL/min (90-130); Glucose 96 mg/dL (65-115); Immunoglobulin IGA 526 mg/dL (70-400); Immunoglobulin IGG 1145 mg/dL (700-1600); Immunoglobulin IGM 99 mg/dL (40-230); Osmolality Calculated 301 mOsm/kg (285-295); Potassium 4.2 mmol/L (3.5-5.1); Sodium 143 mmol/L (136-145); Total Bilirubin 0.2 mg/dL (0.15-1.2); Total Protein 7.5 g/dL (6.6-8.7)
[2023-04-14 09:46] LABS: PROTEIN, TOTAL 7.1 g/dL (6.1-8.1)
[2023-04-14 12:54] LABS: KAPPA LIGHT CHAIN, FREE, SERUM 174.5 mg/L (3.3-19.4); KAPPA/LAMBDA LIGHT CHAINS FREE 4.56 (0.26-1.65); LAMBDA LIGHT CHAIN, FREE, SERU 38.3 mg/L (5.7-26.3)
[2023-04-14 14:35] LABS: ALBUMIN 3.6 g/dL (3.8-4.8); ALPHA 1 GLOBULIN 0.3 g/dL (0.2-0.3); BETA 1 GLOBULIN 0.5 g/dL (0.4-0.6); BETA 2 GLOBULIN 0.6 g/dL (0.2-0.5); GAMMA GLOBULIN 1.1 g/dL (0.8-1.7)
== END 2023-04-14 23:59 | disposition home or self-care (01) ==
PROVIDERS: Internal Medicine Medical Oncology; PCP Registered Nurse; Visit Provider Internal Medicine Medical Oncology
DX: C90.01 Multiple myeloma in remission (principal); Z92.21 Personal history of antineoplastic chemotherapy; Z79.899 Other long term (current) drug therapy
CPT/HCPCS: 36415; 80053; 82784; 83883; 84155; 84165; 85025; 99214

== ENCOUNTER 2023-08-01 09:03 | Outpatient (CLI) | payer MEDICARE, MEDICAID, SELFPAY ==
[2023-08-02 14:10] LABS: PROTEIN, TOTAL, 24 HR UR 134 mg/24 h (<150); Protein/Creatinine Ratio 0.122 (<0.150); Protein/Creatinine Ratio 122 mg/g creat (<150)
[2023-08-09 13:18] LABS: ALBUMIN 100 %; ALPHA-1-GLOBULINS 0 %; ALPHA-2-GLOBULINS 0 %; BETA GLOBULINS 0 %; GAMMA GLOBULINS 0 %
== END 2023-08-01 09:04 | disposition home or self-care (01) ==
LOC: LAB 09:06
PROVIDERS: PCP Registered Nurse; Visit Provider Nurse Practitioner Family
DX: C90.01 Multiple myeloma in remission (principal)
CPT/HCPCS: 84156; 84166

== ENCOUNTER 2023-08-04 12:47 | Oncology outpatient (recurring) (ONCR) | payer MEDICARE, MEDICAID, SELFPAY ==
[2023-07-28 15:12] LABS: Basophils # 0.1 10^3/uL (0.0-0.1); Basophils % 0.9 %; Eosinophils # 0.1 10^3/uL (0.0-0.8); Hematocrit 37.6 % (36-47); Lymphocytes % 31.2 %; Mean Corpuscular HGB Conc 31.1 g/dL (30-55); Mean Corpuscular Hemoglobin 27.1 pg (27-33); Mean Platelet Volume 9.4 fL (7.4-10.4); Monocytes # 0.3 10^3/uL (0.2-0.9); Monocytes % 5.3 %; Neutrophils # 3.83 10^3/uL (1.8-7.7); Neutrophils % 60.3 %; Nucleated Red Blood Cells % 0 %; Platelet Count 235 10^3/cmm (157-399); Red Blood Count 4.32 10^6/uL (3.85-5.65); Red Cell Distribution Width 14.8 % (12.1-15.1); White Blood Count 6.37 10^3/uL (3.29-11.43)
[2023-07-28 15:32] LABS: Alanine Aminotransferase 7 U/L (0-33); Albumin Level 3.9 g/dL (3.5-5.2); Alkaline Phosphatase 99 U/L (35-105); Anion Gap 16.8 (5-19); Aspartate Amino Transferase 14 U/L (0-32); Blood Urea Nitrogen 18 mg/dL (8-23); Calcium 8.9 mg/dL (8.5-10.5); Carbon Dioxide 24 mmol/L (22-29); Chloride 104 mmol/L (98-107); Globulin 3.6 g/dL (1.3-4.6); Glomerular Filtration Rate 40.5 mL/min (90-130); Glucose 103 mg/dL (65-115); Immunoglobulin IGA 473 mg/dL (70-400); Immunoglobulin IGG 1077 mg/dL (700-1600); Immunoglobulin IGM 83 mg/dL (40-230); Osmolality Calculated 292 mOsm/kg (285-295); Potassium 4.8 mmol/L (3.5-5.1); Sodium 140 mmol/L (136-145); Total Bilirubin 0.4 mg/dL (0.15-1.2); Total Protein 7.5 g/dL (6.6-8.7)
[2023-07-29 08:55] LABS: PROTEIN, TOTAL 6.6 g/dL (6.1-8.1)
[2023-07-29 13:23] LABS: KAPPA LIGHT CHAIN, FREE, SERUM 127.9 mg/L (3.3-19.4); KAPPA/LAMBDA LIGHT CHAINS FREE 3.69 (0.26-1.65); LAMBDA LIGHT CHAIN, FREE, SERU 34.7 mg/L (5.7-26.3)
[2023-07-31 10:02] LABS: ALBUMIN 3.5 g/dL (3.8-4.8); ALPHA 1 GLOBULIN 0.3 g/dL (0.2-0.3); ALPHA 2 GLOBULIN 0.8 g/dL (0.5-0.9); BETA 1 GLOBULIN 0.5 g/dL (0.4-0.6); BETA 2 GLOBULIN 0.5 g/dL (0.2-0.5)
== END 2023-08-14 23:59 | disposition home or self-care (01) ==
PROVIDERS: Nurse Practitioner Family; PCP Registered Nurse; Visit Provider Internal Medicine Medical Oncology
DX: C90.01 Multiple myeloma in remission (principal); Z92.21 Personal history of antineoplastic chemotherapy; Z79.899 Other long term (current) drug therapy
CPT/HCPCS: 36415; 80053; 82784; 83883; 84155; 84165; 85025; 86334; 99213

== ENCOUNTER 2023-08-31 08:34 | Outpatient (CLI) | payer MEDICARE, MEDICAID, SELFPAY ==
[2023-08-31 09:28] LABS: Basophils # 0.1 10^3/uL (0.0-0.1); Basophils % 0.9 %; Eosinophils # 0.2 10^3/uL (0.0-0.8); Eosinophils % 2.3 %; Hematocrit 37.5 % (36-47); Lymphocytes # 1.9 10^3/uL (0.8-4.8); Lymphocytes % 28.7 %; Mean Corpuscular HGB Conc 31.5 g/dL (30-55); Mean Corpuscular Hemoglobin 27.8 pg (27-33); Mean Corpuscular Volume 88.2 fl (85-98); Mean Platelet Volume 9.6 fL (7.4-10.4); Monocytes # 0.4 10^3/uL (0.2-0.9); Neutrophils # 4.03 10^3/uL (1.8-7.7); Neutrophils % 61.8 %; Nucleated Red Blood Cells % 0 %; Platelet Count 245 10^3/cmm (157-399); Red Blood Count 4.25 10^6/uL (3.85-5.65); Red Cell Distribution Width 15.1 % (12.1-15.1); White Blood Count 6.52 10^3/uL (3.29-11.43)
[2023-08-31 09:50] LABS: Albumin Level 3.9 g/dL (3.5-5.2); Blood Urea Nitrogen 22 mg/dL (8-23); Calcium 9.2 mg/dL (8.5-10.5); Carbon Dioxide 25 mmol/L (22-29); Chloride 104 mmol/L (98-107); Glomerular Filtration Rate 37.2 mL/min (90-130); Glucose 95 mg/dL (65-115); Phosphorus 3.5 mg/dL (2.5-4.5); Sodium 139 mmol/L (136-145)
[2023-08-31 09:55] LABS: Calcium 9.3 mg/dL (8.5-10.5)
[2023-08-31 10:02] LABS: Parathyroid Hormone 102.3 pg/mL (15-65)
[2023-08-31 10:15] LABS: Urine Creatinine 132 mg/dL (28-217); Urine Protein Random 19 mg/dL
[2023-08-31 10:17] LABS: UPRO/UCREAT Ratio 0.14 mg/mg CR
[2023-08-31 10:44] LABS: 25 Hydroxy Vitamin D 28 ng/mL (30-100)
== END 2023-08-31 08:35 | disposition home or self-care (01) ==
PROVIDERS: PCP Registered Nurse; Visit Provider Registered Nurse
DX: E55.9 Vitamin D deficiency, unspecified (principal)
CPT/HCPCS: 36415; 80069; 82306; 82310; 82570; 83970; 84156; 85025

== ENCOUNTER 2023-12-05 12:17 | Oncology outpatient (recurring) (ONCR) | payer MEDICARE, MEDICAID, SELFPAY ==
[2023-11-28 14:55] LABS: Basophils # 0.1 10^3/uL (0.0-0.1); Basophils % 0.9 %; Eosinophils # 0.1 10^3/uL (0.0-0.8); Hematocrit 34.3 % (36-47); Lymphocytes # 1.9 10^3/uL (0.8-4.8); Lymphocytes % 29.4 %; Mean Corpuscular HGB Conc 30.9 g/dL (30-55); Mean Corpuscular Hemoglobin 26.8 pg (27-33); Mean Corpuscular Volume 86.8 fl (85-98); Mean Platelet Volume 9.1 fL (7.4-10.4); Monocytes # 0.5 10^3/uL (0.2-0.9); Monocytes % 7.2 %; Neutrophils # 3.83 10^3/uL (1.8-7.7); Neutrophils % 60.2 %; Nucleated Red Blood Cells % 0 %; Platelet Count 277 10^3/cmm (157-399); Red Blood Count 3.95 10^6/uL (3.85-5.65); Red Cell Distribution Width 14.8 % (12.1-15.1); White Blood Count 6.37 10^3/uL (3.29-11.43)
[2023-11-28 15:19] LABS: Alanine Aminotransferase 10 U/L (0-33); Alkaline Phosphatase 107 U/L (35-105); Anion Gap 17.4 (5-19); Aspartate Amino Transferase 17 U/L (0-32); Blood Urea Nitrogen 23 mg/dL (8-23); Calcium 9.4 mg/dL (8.5-10.5); Carbon Dioxide 24 mmol/L (22-29); Chloride 100 mmol/L (98-107); Globulin 3.6 g/dL (1.3-4.6); Glomerular Filtration Rate 37.2 mL/min (90-130); Glucose 86 mg/dL (65-115); Immunoglobulin IGA 510 mg/dL (70-400); Immunoglobulin IGG 1274 mg/dL (700-1600); Immunoglobulin IGM 85 mg/dL (40-230); Osmolality Calculated 287 mOsm/kg (285-295); Potassium 4.4 mmol/L (3.5-5.1); Sodium 137 mmol/L (136-145); Total Bilirubin 0.2 mg/dL (0.15-1.2); Total Protein 7.6 g/dL (6.6-8.7)
[2023-11-29 08:20] LABS: PROTEIN, TOTAL 7.2 g/dL (6.1-8.1)
[2023-11-29 11:44] LABS: LAMBDA LIGHT CHAIN, FREE, SERU 35.8 mg/L (5.7-26.3)
[2023-11-29 12:55] LABS: ALBUMIN 3.7 g/dL (3.8-4.8); ALPHA 1 GLOBULIN 0.4 g/dL (0.2-0.3); ALPHA 2 GLOBULIN 0.8 g/dL (0.5-0.9); BETA 1 GLOBULIN 0.5 g/dL (0.4-0.6); BETA 2 GLOBULIN 0.6 g/dL (0.2-0.5); GAMMA GLOBULIN 1.2 g/dL (0.8-1.7)
[2023-11-29 16:00] LABS: CREATININE, 24 HOUR URINE 0.96 g/24 h (0.50-2.15); PROTEIN, TOTAL, 24 HR UR 96 mg/24 h (<150); Protein/Creatinine Ratio 100 mg/g creat (<150)
[2023-12-01 11:55] LABS: ALBUMIN 0 %; ALPHA-1-GLOBULINS 0 %; ALPHA-2-GLOBULINS 0 %; BETA GLOBULINS 0 %; GAMMA GLOBULINS 0 %
[2023-12-03 22:04] LABS: Immunofixation Serum Normal pattern.
== END 2023-12-14 23:59 | disposition home or self-care (01) ==
PROVIDERS: PCP Registered Nurse; Visit Provider Nurse Practitioner Family
DX: Z92.21 Personal history of antineoplastic chemotherapy (principal); C90.01 Multiple myeloma in remission; Z79.899 Other long term (current) drug therapy
CPT/HCPCS: 36415; 80053; 82784; 83883; 84155; 84156; 84165; 84166; 85025; 86334; 99214

== ENCOUNTER 2024-03-02 07:56 | Outpatient (CLI) | payer MEDICARE, MEDICAID, SELFPAY ==
--- NOTE | 2024-03-02 08:00 | PETR_ITS ---
PROCEDURE INFORMATION: Exam: PET/CT Skull Base to Mid-thigh Exam date and time: 03/02/2024 8:54 AM Age: 68 years old Clinical indication: Condition or disease; Primary cancer: Multiple myeloma in remission; Follow-up oncological assessment; Additional info: [facility] LABS AND CLINICAL REPORTS: Glucose: 130 mg/dl Treatment strategy for malignancy (PET staging): Restaging (PS) TECHNIQUE: Imaging protocol: Following at least four-hour fasting and following the injection of radiopharmaceutical, low dose CT images were obtained. Then, PET images were obtained. Attenuation corrected images were constructed using the CT scan. Fused images of PET and CT were reviewed. The standardized uptake values (SUV) reported below are maximum values within a region of interest, expressed in gm/ml. Exam includes orbital meatal line to mid-thigh. Radiopharmaceutical: 12 mCi F-18 FDG (Fluorodeoxyglucose), IV. Time of imaging post radiopharmaceutical administration: 1 hour Injection site: right ac COMPARISON: No relevant prior studies available. FINDINGS: Brain: Visualized brain has normal physiologic uptake. Pharynx: No abnormal uptake. Larynx: Bilateral symmetric uptake compatible with benign physiologic finding. Lungs, pleura and trachea: No abnormal uptake. No lung nodules or masses. No pleural effusion. Heart: Normal physiologic uptake. There is no cardiomegaly. No coronary artery calcification is visualized. There is no pericardial effusion. Mediastinal space: See below in soft tissues .There is a small hiatal hernia. Liver: No abnormal uptake. Gallbladder and biliary ducts: No abnormal uptake. No calcified gallstones. Pancreas: No abnormal uptake. Spleen: No abnormal uptake. No splenomegaly. Adrenal glands: There is increased uptake of 5.8 SUV within normal size and shape left adrenal. Lower uptake of 4.1 SUV noted within 2.3 x 2.2 cm right adrenal nodule with low density of-4 Hounsfield units compatible with benign adrenal cortical adenoma. Kidneys and ureters: Normal physiologic uptake. No hydronephrosis. Simple cysts in the left kidney measuring up to 3 cm. Stomach and bowel: No abnormal uptake. There is diverticulosis in the sigmoid colon. Intraperitoneal and retroperitoneal spaces: No abnormal uptake. No ascites. Bladder: Normal physiologic uptake. Reproductive: No abnormal uptake. 3.2 x 3 cm simple cyst in the left ovary. The uterus is unremarkable. There is no abnormality in the area of the right adnexa. Vasculature: No abnormal uptake. No aortic aneurysm. Lymph nodes: Mildly enlarged left superficial inguinal lymph node measures 3.4 x 1.3 cm/4 SUV. There is borderline uptake of 2.5 SUV within normal size right inguinal lymph node on series 301, image 230. No FDG avid lymphadenopathy in the head, neck, chest, abdomen, pelvis, and axillas. Skeleton: No abnormal uptake in the visualized axial and appendicular skeleton. There is internal fixation plate in the body and the right ramus of the mandible. There are chronic compressions of multiple vertebra (severe of T8, moderate of T9-T10, moderate to severe of L2, moderate of L4 and L5) with no retropulsion or severe spinal stenosis. Soft tissues: Intense uptake in bilateral symmetric paravertebral/intercostal areas in the chest suggestive of benign physiologic uptake in the brown fat. Focal uptake in the left upper posterior mediastinal fat (series 301, image 77) and two tiny foci of similar intense uptake within the fat medially to the right internal mammary vessels (series 301, image 93 and 102) possibly represent additional brown fat uptake. Small linear focus of increased uptake of 3.8 SUV noted in the left a retroperitoneal fat on series 301, image 177. there is intense bilateral symmetric muscular uptake in the upper neck at the craniocervical junction including bilateral longus coli muscles. PET/PET skull to thigh INIT [id number] IMPRESSION: 1. No abnormal uptake in multiple collapsed lower thoracic and lumbar vertebra or elsewhere in the bones. 2. Mildly increased uptake up to 3.4 SUV within mildly enlarged left superficial inguinal lymph node and borderline uptake of 2.5 SUV within normal size right inguinal lymph node is probably benign reactive in nature rather than malignant. 3. Multifocal intense uptake in the fat in the mediastinum, paravertebral areas, right internal mammary fat and the left retroperitoneal fat suggestive of physiologic brown fat activity. 4. Increased uptake in the adrenals is probably benign. There is 2.3 cm benign right adrenal cortical adenoma. No follow-up imaging is recommended. 5. Non FDG avid 3.2 cm simple cyst in the left ovary. If no prior exams are available to confirm long-term stability ultrasound follow-up in 6-12 months is recommended. Reference: Peter et al. Management of Incidental Adnexal Findings on CT and MRI: A White Paper of the ACR Incidental Findings Committee, J Am Jae Radiol. 2019;17(2):248-254.
== END 2024-03-02 07:57 | disposition home or self-care (01) ==
PROVIDERS: PCP Registered Nurse; Visit Provider Nurse Practitioner Family
DX: C90.01 Multiple myeloma in remission (principal); D35.01 Benign neoplasm of right adrenal gland; R59.0 Localized enlarged lymph nodes; R93.89 Abnormal findings on diagnostic imaging of other specified body structures
CPT/HCPCS: 78815; A9552

== ENCOUNTER 2024-03-08 12:55 | Oncology outpatient (recurring) (ONCR) | payer MEDICARE, MEDICAID, SELFPAY ==
[2024-03-01 14:58] LABS: Basophils # 0.1 10^3/uL (0.0-0.1); Basophils % 0.9 %; Eosinophils # 0.2 10^3/uL (0.0-0.8); Hematocrit 35.8 % (36-47); Lymphocytes # 2.1 10^3/uL (0.8-4.8); Lymphocytes % 27.2 %; Mean Corpuscular HGB Conc 30.4 g/dL (30-55); Mean Corpuscular Hemoglobin 26.4 pg (27-33); Mean Corpuscular Volume 86.7 fl (85-98); Mean Platelet Volume 9.5 fL (7.4-10.4); Monocytes # 0.4 10^3/uL (0.2-0.9); Monocytes % 5.4 %; Neutrophils # 4.83 10^3/uL (1.8-7.7); Nucleated Red Blood Cells % 0 %; Platelet Count 291 10^3/cmm (157-399); Red Blood Count 4.13 10^6/uL (3.85-5.65); Red Cell Distribution Width 16.1 % (12.1-15.1); White Blood Count 7.66 10^3/uL (3.29-11.43)
[2024-03-01 15:11] LABS: Alanine Aminotransferase 12 U/L (0-33); Alkaline Phosphatase 107 U/L (35-105); Anion Gap 14.2 (5-19); Aspartate Amino Transferase 23 U/L (0-32); Blood Urea Nitrogen 25 mg/dL (8-23); Calcium 8.3 mg/dL (8.5-10.5); Carbon Dioxide 24 mmol/L (22-29); Chloride 105 mmol/L (98-107); Globulin 3.6 g/dL (1.3-4.6); Glomerular Filtration Rate 40.5 mL/min (90-130); Glucose 99 mg/dL (65-115); Immunoglobulin IGA 527 mg/dL (70-400); Immunoglobulin IGG 1244 mg/dL (700-1600); Immunoglobulin IGM 95 mg/dL (40-230); Osmolality Calculated 292 mOsm/kg (285-295); Potassium 4.2 mmol/L (3.5-5.1); Sodium 139 mmol/L (136-145); Total Bilirubin 0.2 mg/dL (0.15-1.2); Total Protein 7.6 g/dL (6.6-8.7)
[2024-03-02 06:29] LABS: PROTEIN, TOTAL 7.1 g/dL (6.1-8.1)
[2024-03-02 12:34] LABS: CREATININE, 24 HOUR URINE 0.85 g/24 h (0.50-2.15); PROTEIN, TOTAL, 24 HR UR 119 mg/24 h (<150); Protein/Creatinine Ratio 0.141 (<0.150); Protein/Creatinine Ratio 141 mg/g creat (<150)
[2024-03-03 12:24] LABS: ALBUMIN 3.5 g/dL (3.8-4.8); ALPHA 1 GLOBULIN 0.4 g/dL (0.2-0.3); ALPHA 2 GLOBULIN 0.9 g/dL (0.5-0.9); BETA 1 GLOBULIN 0.5 g/dL (0.4-0.6); BETA 2 GLOBULIN 0.6 g/dL (0.2-0.5); GAMMA GLOBULIN 1.2 g/dL (0.8-1.7)
[2024-03-05 14:56] LABS: KAPPA LIGHT CHAIN, FREE, SERUM 130.5 mg/L (3.3-19.4); KAPPA/LAMBDA LIGHT CHAINS FREE 3.88 (0.26-1.65); LAMBDA LIGHT CHAIN, FREE, SERU 33.6 mg/L (5.7-26.3)
[2024-03-05 19:54] LABS: Immunofixation Serum Normal pattern.
[2024-03-08 15:50] LABS: ALBUMIN 100 %; ALPHA-1-GLOBULINS 0 %; ALPHA-2-GLOBULINS 0 %; BETA GLOBULINS 0 %; GAMMA GLOBULINS 0 %
== END 2024-03-15 23:59 | disposition home or self-care (01) ==
PROVIDERS: PCP Registered Nurse; Visit Provider Nurse Practitioner Family
DX: C90.01 Multiple myeloma in remission (principal)
CPT/HCPCS: 36415; 80053; 82784; 83883; 84155; 84156; 84165; 84166; 85025; 86334; 99214

== ENCOUNTER 2024-07-09 12:40 | Oncology outpatient (recurring) (ONCR) | payer MEDICARE, MEDICAID, SELFPAY ==
[2024-07-02 13:23] LABS: Basophils # 0.1 10^3/uL (0.0-0.1); Basophils % 0.6 %; Eosinophils # 0.2 10^3/uL (0.0-0.8); Eosinophils % 2.9 %; Hematocrit 37.6 % (36-47); Lymphocytes # 2.1 10^3/uL (0.8-4.8); Lymphocytes % 26.4 %; Mean Corpuscular HGB Conc 30.6 g/dL (30-55); Mean Corpuscular Hemoglobin 26.9 pg (27-33); Mean Corpuscular Volume 88.1 fl (85-98); Mean Platelet Volume 9.3 fL (7.4-10.4); Monocytes # 0.5 10^3/uL (0.2-0.9); Monocytes % 6.5 %; Neutrophils # 4.96 10^3/uL (1.8-7.7); Neutrophils % 63.3 %; Nucleated Red Blood Cells % 0 %; Platelet Count 248 10^3/cmm (157-399); Red Blood Count 4.27 10^6/uL (3.85-5.65); White Blood Count 7.84 10^3/uL (3.29-11.43)
[2024-07-02 13:48] LABS: Alanine Aminotransferase 14 U/L (0-33); Albumin Level 3.9 g/dL (3.5-5.2); Alkaline Phosphatase 111 U/L (35-105); Anion Gap 17.3 (5-19); Aspartate Amino Transferase 17 U/L (0-32); Blood Urea Nitrogen 23 mg/dL (8-23); Calcium 9.6 mg/dL (8.5-10.5); Carbon Dioxide 24 mmol/L (22-29); Chloride 101 mmol/L (98-107); Globulin 4.1 g/dL (1.3-4.6); Glucose 105 mg/dL (65-115); Immunoglobulin IGA 553 mg/dL (70-400); Immunoglobulin IGG 1300 mg/dL (700-1600); Immunoglobulin IGM 96 mg/dL (40-230); Osmolality Calculated 290 mOsm/kg (285-295); Potassium 4.3 mmol/L (3.5-5.1); Sodium 138 mmol/L (136-145); Total Bilirubin 0.4 mg/dL (0.15-1.2)
[2024-07-03 04:44] LABS: PROTEIN, TOTAL 7.5 g/dL (6.1-8.1)
[2024-07-03 08:35] LABS: CREATININE, 24 HOUR URINE 0.83 g/24 h (0.50-2.15); PROTEIN, TOTAL, 24 HR UR 150 mg/24 h (<150); Protein/Creatinine Ratio 0.181 (<0.150); Protein/Creatinine Ratio 181 mg/g creat (<150)
[2024-07-03 13:24] LABS: KAPPA LIGHT CHAIN, FREE, SERUM 157.7 mg/L (3.3-19.4); KAPPA/LAMBDA LIGHT CHAINS FREE 4.38 (0.26-1.65)
[2024-07-03 19:06] LABS: ALBUMIN 3.8 g/dL (3.8-4.8); ALPHA 1 GLOBULIN 0.3 g/dL (0.2-0.3); ALPHA 2 GLOBULIN 0.9 g/dL (0.5-0.9); BETA 1 GLOBULIN 0.5 g/dL (0.4-0.6); BETA 2 GLOBULIN 0.7 g/dL (0.2-0.5); GAMMA GLOBULIN 1.3 g/dL (0.8-1.7)
[2024-07-05 10:00] LABS: ALBUMIN 100 %; ALPHA-1-GLOBULINS 0 %; ALPHA-2-GLOBULINS 0 %; BETA GLOBULINS 0 %; GAMMA GLOBULINS 0 %
[2024-07-05 23:25] LABS: Immunofixation Serum Normal pattern.
== END 2024-07-13 23:59 | disposition home or self-care (01) ==
PROVIDERS: Internal Medicine Hematology & Oncology; PCP Registered Nurse; Visit Provider Nurse Practitioner Family
DX: Z08 Encounter for follow-up examination after completed treatment for malignant neoplasm (principal); Z85.858 Personal history of malignant neoplasm of other endocrine glands
CPT/HCPCS: 36415; 80053; 82784; 83883; 84155; 84156; 84165; 84166; 85025; 86334; 99214

== ENCOUNTER 2024-09-18 08:34 | Outpatient (CLI) | payer MEDICARE, MEDICAID, SELFPAY ==
[2024-09-18 09:04] LABS: Basophils # 0.1 10^3/uL (0.0-0.1); Basophils % 0.9 %; Eosinophils # 0.2 10^3/uL (0.0-0.8); Eosinophils % 3.1 %; Hematocrit 37.5 % (36-47); Lymphocytes % 25.9 %; Mean Corpuscular HGB Conc 30.4 g/dL (30-55); Mean Corpuscular Hemoglobin 26.5 pg (27-33); Mean Corpuscular Volume 87.2 fl (85-98); Mean Platelet Volume 8.9 fL (7.4-10.4); Monocytes # 0.5 10^3/uL (0.2-0.9); Monocytes % 6.8 %; Neutrophils # 4.81 10^3/uL (1.8-7.7); Nucleated Red Blood Cells % 0 %; Platelet Count 269 10^3/cmm (157-399); Red Cell Distribution Width 15.8 % (12.1-15.1); White Blood Count 7.64 10^3/uL (3.29-11.43)
[2024-09-18 09:21] LABS: Anion Gap 16.1 (5-19); Blood Urea Nitrogen 20 mg/dL (8-23); Calcium 9.2 mg/dL (8.5-10.5); Calcium 9.3 mg/dL (8.5-10.5); Carbon Dioxide 24 mmol/L (22-29); Chloride 102 mmol/L (98-107); Glucose 104 mg/dL (65-115); Phosphorus 2.4 mg/dL (2.5-4.5); Potassium 4.1 mmol/L (3.5-5.1); Sodium 138 mmol/L (136-145)
[2024-09-18 09:28] LABS: Parathyroid Hormone 125.2 pg/mL (15-65)
[2024-09-18 09:38] LABS: 25 Hydroxy Vitamin D 27 ng/mL (30-100)
[2024-09-18 10:11] LABS: Creatinine Urine, Random 31 mg/dL (28-217); Microalbum Creatinine Ratio Ur 32 mg/dL (0-20); Microalbumin Random Urine 1 ug/dL (0-20)
== END 2024-09-18 08:35 | disposition home or self-care (01) ==
PROVIDERS: PCP Internal Medicine Medical Oncology; Visit Provider Registered Nurse
DX: N18.32 Chronic kidney disease, stage 3b (principal); E55.9 Vitamin D deficiency, unspecified
CPT/HCPCS: 36415; 80069; 82044; 82306; 82310; 83970; 85025

== ENCOUNTER 2025-01-07 12:40 | Oncology outpatient (recurring) (ONCR) | payer MEDICARE, MEDICAID, SELFPAY ==
[2024-12-31 13:39] LABS: Hematocrit 36.6 % (36-47); Hemoglobin 11.40 g/dL (11.27-16.99); Mean Corpuscular HGB Conc 31.1 g/dL (30-55); Mean Corpuscular Hemoglobin 26.8 pg (27-33); Mean Corpuscular Volume 85.9 fl (85-98); Nucleated Red Blood Cells % 0 %; Platelet Count 246 10^3/cmm (157-399); Red Blood Count 4.26 10^6/uL (3.85-5.65); White Blood Count 6.83 10^3/uL (3.29-11.43)
[2024-12-31 13:56] LABS: Alanine Aminotransferase 9 U/L (0-33); Albumin Level 4.0 g/dL (3.5-5.2); Alkaline Phosphatase 106 U/L (35-105); Anion Gap 14.4 (5-19); Aspartate Amino Transferase 17 U/L (0-32); Blood Urea Nitrogen 20 mg/dL (8-23); Calcium 10.0 mg/dL (8.5-10.5); Carbon Dioxide 25 mmol/L (22-29); Chloride 103 mmol/L (98-107); Globulin 3.8 g/dL (1.3-4.6); Glucose 106 mg/dL (65-115); Osmolality Calculated 289 mOsm/kg (285-295); Potassium 4.4 mmol/L (3.5-5.1); Sodium 138 mmol/L (136-145); Total Protein 7.8 g/dL (6.6-8.7)
[2025-01-01 06:26] LABS: PROTEIN, TOTAL 7.3 g/dL (6.1-8.1)
[2025-01-01 12:10] LABS: KAPPA LIGHT CHAIN, FREE, SERUM 175.0 mg/L (3.3-19.4); KAPPA/LAMBDA LIGHT CHAINS FREE 5.00 (0.26-1.65); LAMBDA LIGHT CHAIN, FREE, SERU 35.0 mg/L (5.7-26.3)
[2025-01-02 09:15] LABS: ALPHA 1 GLOBULIN 0.3 g/dL (0.2-0.3); ALPHA 2 GLOBULIN 0.9 g/dL (0.5-0.9); BETA 1 GLOBULIN 0.5 g/dL (0.4-0.6); BETA 2 GLOBULIN 0.6 g/dL (0.2-0.5)
== END 2025-01-13 23:59 | disposition home or self-care (01) ==
PROVIDERS: PCP Internal Medicine Medical Oncology; Visit Provider Nurse Practitioner Family
DX: Z08 Encounter for follow-up examination after completed treatment for malignant neoplasm (principal); C90.01 Multiple myeloma in remission
CPT/HCPCS: 36415; 80053; 83883; 84155; 84165; 85025; 86334; 99214